=== PATIENT | female | born 1965 | race Caucasian/White ===

== ENCOUNTER 2018-02-01 07:53 | Outpatient (CLI) | payer BC | END 2018-02-01 07:54 | disposition home or self-care (01) | LOC: BICMAMMO 07:53 | PROVIDERS: ATTEND Internal Medicine | DX: Z12.31 Encounter for screening mammogram for malignant neoplasm of breast (principal); R92.1 Mammographic calcification found on diagnostic imaging of breast | CPT/HCPCS: 77063; 77067 ==

== ENCOUNTER 2019-02-16 15:05 | Outpatient (CLI) | payer OTHER ==
--- NOTE | 2019-02-16 17:22 | MMO ---
Bilateral MAMMO Bilat Screen [id number]. CLINICAL HISTORY: Patient is 53 years old and is seen for screening. The patient has no family history of breast cancer. The patient has no personal history of cancer. VIEWS: The views performed were: bilateral craniocaudal with tomosynthesis and bilateral mediolateral oblique with tomosynthesis. FILMS COMPARED: The present examination has been compared to a prior imaging study performed at [facility] on 02/01/2018. This study has been interpreted with the assistance of computer-aided detection. MAMMOGRAM FINDINGS: There are scattered fibroglandular densities. There are stable benign appearing calcifications seen in both breasts. There are no suspicious masses, calcifications or areas of architectural distortion. There are no suspicious masses, suspicious calcifications, or new areas of architectural distortion. IMPRESSION: THERE IS NO MAMMOGRAPHIC EVIDENCE OF MALIGNANCY. A ROUTINE FOLLOW-UP MAMMOGRAM IN 1 YEAR IS RECOMMENDED. THE RESULTS OF THIS EXAM WERE SENT TO THE PATIENT. ACR BI-RADS Category 2 - Benign finding MAMMOGRAPHY NOTE: 1. A negative mammogram report should not delay a biopsy if a dominant of clinically suspicious mass is present. 2. Approximately 10% to 15% of breast cancers are not detected by mammography. 3. Adenosis and dense breasts may obscure an underlying neoplasm. Reported by: JORDY GRANADOS MD Electonically Signed: [id number]
== END 2019-02-16 15:06 | disposition home or self-care (01) ==
LOC: BICMAMMO 15:05
PROVIDERS: ATTEND Internal Medicine
DX: Z12.31 Encounter for screening mammogram for malignant neoplasm of breast (principal)
CPT/HCPCS: 77063; 77067

== ENCOUNTER 2020-10-24 13:19 | Outpatient (CLI) | payer BC | END 2020-10-24 13:20 | disposition home or self-care (01) | LOC: ULT 13:19 | PROVIDERS: ATTEND Internal Medicine | DX: I65.21 Occlusion and stenosis of right carotid artery (principal); G45.8 Other transient cerebral ischemic attacks and related syndromes; R09.89 Other specified symptoms and signs involving the circulatory and respiratory systems | CPT/HCPCS: 93880 ==

== ENCOUNTER 2020-11-12 14:54 | Outpatient (CLI) | payer BC | END 2020-11-12 14:55 | disposition home or self-care (01) | LOC: BICMAMMO 14:54 | PROVIDERS: ATTEND Internal Medicine | DX: Z12.31 Encounter for screening mammogram for malignant neoplasm of breast (principal) | CPT/HCPCS: 77063; 77067 ==

== ENCOUNTER 2020-11-21 13:16 | Outpatient (CLI) | payer BC | END 2020-11-21 13:17 | disposition home or self-care (01) | LOC: MRI 13:16 | PROVIDERS: ATTEND Thoracic Surgery (Cardiothoracic Vascular Surgery) | DX: G45.8 Other transient cerebral ischemic attacks and related syndromes (principal); I70.8 Atherosclerosis of other arteries | CPT/HCPCS: 70549 ==

== ENCOUNTER 2021-04-14 16:40 | Outpatient (CLI) | payer BC ==
[2021-04-14 17:44] LABS: PTT 25.6 sec (22.0-33.0); Prothrombin Time 11.5 sec (9.5-12.1)
[2021-04-14 17:56] LABS: ALT (SGPT) 31 U/L (8-55); AST (SGOT) 67 U/L (5-34); Albumin 3.9 g/dL (3.5-5.0); Alkaline Phosphatase 111 U/L (40-110); Anion Gap 14 mmol/L (10-20); BUN (Urea Nitrogen) 14 mg/dL (9.8-20.1); Bilirubin, Direct 0.5 mg/dL (0.1-0.3); Calc. Creatinine Clearance 0 mL/min (70-130); Calcium 8.8 mg/dL (7.8-10.44); Carbon Dioxide 24 mmol/L (22-29); Chloride 104 mmol/L (98-107); Glucose 144 mg/dL (70-105); Potassium 4.1 mmol/L (3.5-5.1); Protein, Total 8.4 g/dL (6.0-8.3); Sodium 138 mmol/L (136-145)
[2021-04-14 19:50] LABS: Hemoglobin 9.5 g/dL (12.0-15.5); Mean Corpuscular HGB CONC 33.9 g/dL (32.0-36.0); Mean Corpuscular Hemoglobin 36.4 pg (27.0-33.0); Mean Corpuscular Volume 107.3 fl (81.6-98.3); Mean Platelet Volume 11.2 fl (7.4-10.4); Platelet Count 103 10x3/uL (150-450); RBC Distribution Width 14.8 % (11.5-14.5); Red Blood Cell (RBC) Count 2.61 10x6/uL (3.90-5.03); White Blood Cell (WBC) Count 2.3 10x3/uL (3.5-10.5)
[2021-04-15 17:40] LABS: SARS-CoV-2 PCR by NAA Not Detected (NotDetected)
== END 2021-04-14 16:41 | disposition home or self-care (01) ==
LOC: LABBT 16:40
PROVIDERS: ATTEND Plastic Surgery
DX: Z01.818 Encounter for other preprocedural examination (principal); C44.301 Unspecified malignant neoplasm of skin of nose; Z20.822 Contact with and (suspected) exposure to COVID-19
CPT/HCPCS: 80048; 80076; 85027; 85610; 85730; 93005; 93010; U0003; U0005

== ENCOUNTER 2021-04-17 10:24 | Day surgery (SDC) | payer BC ==
[2021-04-14 14:50] VITALS: BMI 26.9
[2021-04-17] MEDS ORDERED: Heparin 5,000 UNITS/ML VIAL ONE (11:01)
[2021-04-17] MEDS ORDERED: Midazolam HCl 2 mg/2 ml Vial ONE (11:40)
[2021-04-17] MEDS ORDERED: Fentanyl 100 MCG/2 ML VIAL ONE (11:40)
[2021-04-17] MEDS ORDERED: Ophthalmic Irrigation Solution 15 ML ONE (11:48)
[2021-04-17] MEDS ORDERED: EPINEPHrine 1 MG/ML AMP ONE (11:48)
[2021-04-17] MEDS ORDERED: Bupivacaine 0.25% HCL 30 ML VIAL ONE (11:48)
[2021-04-17] MEDS ORDERED: Bacitracin Zinc Ointment 30 gm TUBE ONE (11:48)
[2021-04-17] MEDS ORDERED: Ondansetron PF 4 MG/2 ML Vial ONE (12:13)
[2021-04-17] MEDS ORDERED: Lidocaine 1% PF 5 ML VIAL ONE (12:13)
[2021-04-17] MEDS ORDERED: PHENYLEPHRINE-NS 100 MCG/ML 10 ML SYRINGE ONE (12:13)
[2021-04-17] MEDS ORDERED: ePHEDrine 50 MG/ML VIAL ONE (12:13)
[2021-04-17] MEDS ORDERED: Dexamethasone 20 MG/5 ML VIAL ONE (12:13)
[2021-04-17] MEDS ORDERED: Rocuronium Bromide 10 MG/ML (10ML VIAL) ONE (12:13)
[2021-04-17] MEDS ORDERED: PROPOFOL 200 MG/20 ML VIAL ONE (12:13)
[2021-04-17] MEDS ORDERED: Ketorolac Tromethamine 30 MG/ML VIAL ONE (12:13)
[2021-04-17] MEDS ORDERED: [UNRECOGNIZED DRUG - OTHER] ONE (12:31)
== END 2021-04-17 16:53 | disposition home or self-care (01) ==
LOC: SDC 10:24
PROVIDERS: ATTEND Plastic Surgery
PROC: 0JX10ZB Transfer Face Subcutaneous Tissue and Fascia with Skin and Subcutaneous Tissue, Open Approach (ICD-10-PCS; principal; 2021-04-17)
PROC: 0HB1XZZ Excision of Face Skin, External Approach (ICD-10-PCS; principal; 2021-04-17)
DX: C44.311 Basal cell carcinoma of skin of nose (principal); Z79.899 Other long term (current) drug therapy; Z91.041 Radiographic dye allergy status
CPT/HCPCS: 88305; 88331; 88332; J0171; J1100; J1644; J1885; J2250; J2405; J2704; J3010; J3490; S0020

== ENCOUNTER 2021-11-24 08:29 | Outpatient (CLI) | payer BC | END 2021-11-24 08:30 | disposition home or self-care (01) | LOC: BICMAMMO 08:29 | PROVIDERS: ATTEND Internal Medicine | DX: Z12.31 Encounter for screening mammogram for malignant neoplasm of breast (principal) | CPT/HCPCS: 77063; 77067 ==

== ENCOUNTER 2022-07-25 05:24 | Inpatient (IN) | payer BC ==
[2022-07-25] MEDS ORDERED: Ondansetron PF 4 MG/2 ML Vial ONE (06:16)
[2022-07-25 06:53] LABS: ALT (SGPT) 8 U/L (8-55); AST (SGOT) 33 U/L (5-34); Albumin 2.9 g/dL (3.5-5.0); Alkaline Phosphatase 92 U/L (40-110); Anion Gap 11 mmol/L (10-20); BUN (Urea Nitrogen) 11 mg/dL (9.8-20.1); Calc. Creatinine Clearance 0 mL/min (70-130); Calcium 8.2 mg/dL (7.8-10.44); Carbon Dioxide 22 mmol/L (22-29); Chloride 103 mmol/L (98-107); Estimated GFR 75; Globulin 4.5 g/dL (2.4-3.5); Glucose 165 mg/dL (70-105); Lipase 28 U/L (8-78); Potassium 3.5 mmol/L (3.5-5.1); Protein, Total 7.4 g/dL (6.0-8.3); Sodium 132 mmol/L (136-145)
[2022-07-25 06:54] LABS: Hemoglobin 8.2 g/dL (12.0-16.0); Mean Corpuscular Hemoglobin 38.9 pg (27.0-31.0); RBC Distribution Width 13.8 % (11.5-14.5); White Blood Cell (WBC) Count 3.3 10x3/uL (4.8-10.8)
[2022-07-25 07:11] LABS: #Lymphocytes 0.3 thou/uL (1.20-3.40); #Monocytes 0.2 thou/uL (0.11-0.59); #Neutrophils 2.8 thou/uL (1.40-6.50); %Eosinophils 1.3 % (0.0-10.0); %Lymphocytes 8.9 % (21.0-51.0); %Neutrophils 82.9 % (42.0-75.0)
[2022-07-25 07:14] LABS: Bilirubin Negative (Negative); Blood, Urine Negative (Negative); Clarity Clear (Clear); Glucose, Urine (Dipstick) Normal (Negative); Ketone, Urine Trace mg/dL (Negative); Leukocyte Negative Leu/uL (Negative); Nitrite Negative (Negative); Protein, Urine (Dipstick) 10 mg/dL (Neg-Trace); Urobilinogen 3 mg/dL (Less than 2); pH, Urine 5.5 (5.0-9.0)
[2022-07-25 07:21] LABS: MDiff Complete? YES; Macrocytosis MODERATE=16-30 cells (100X) (0-5/hpf); Mean Platelet Volume 9.9 fL (7.4-10.4); Ovalocytes MODERATE= 6-15 cells (100X) (0-1/hpf); Platelet Count 94 10x3/uL (130-400); Platelet Morphology Comment Appears Decreased; Polychromasia SLIGHT = 2-3 cells (100X) (0-2/hpf); Schistocytes SLIGHT = 2-5 cells (100X) (0-1/hpf); Tear Drops SLIGHT = 2-5 cells (100X) (0-1/hpf)
[2022-07-25] MEDS ORDERED: Vancomycin 1 GM/200 ML (FROZEN) BAG ONE (08:32)
[2022-07-25] MEDS ORDERED: Cefepime 2 GM VIAL ONE (08:32)
[2022-07-25 09:18] LABS: INR-International Normal Ratio 1.3; PTT 32.5 sec (22.9-36.1); Prothrombin Time 16.3 sec (12.0-14.7)
[2022-07-25] MEDS ORDERED: NOREPINEPHRINE 8 MG/250 ML-D5W 250 ML ONE (10:11)
[2022-07-25] MEDS ORDERED: Ondansetron PF 4 MG/2 ML Vial IVP PRN (11:11)
[2022-07-25] MEDS ORDERED: NOREPINEPHRINE 8 MG/250 ML-D5W 250 ML IVPB SCH (11:15)
[2022-07-25] MEDS ORDERED: Dexamethasone 10 MG/ML VIAL ONE (11:15)
[2022-07-25] MEDS: Albumin 25% 25 GM/100 ML BOT IVPB SCH ×3 (12:56→23:54)
[2022-07-25] MEDS: metroNIDAZOLE 500 MG in Premix Bag 1 BAG IVPB SCH ×2 (13:50→23:27)
[2022-07-25 13:51] LABS: SARS-CoV-2 NAA Rapid Test Not Detected (NotDetected)
[2022-07-25 15:07] VITALS: BMI 26.8
[2022-07-25] MEDS: Sodium Chloride 0.9% 1,000 ML IV SCH (15:54)
[2022-07-25] MEDS: methylPREDNISolone Sod Succ 40 MG VIAL IVP SCH (17:40)
[2022-07-25] MEDS ORDERED: methylPREDNISolone Sod Succ 40 MG VIAL IVP SCH (18:00)
[2022-07-25 18:21] LABS: RBC Count-Automated (BF) 2221 /cu.mm; WBC/Nucleated-Auto (BF) 100 /cu.mm
[2022-07-25] MEDS ORDERED: Dextrose 50% Abboject 50 ML SYRINGE SLOW IVP PRN (18:47)
[2022-07-25] MEDS ORDERED: Dextrose 5% in Water 1,000 ML IV PRN (18:47)
[2022-07-25 19:05] LABS: BF Color Yellow; Body Fluid Source Ascites Body Fluid; Clarity Hazy (Clear); Tube # EDTA
[2022-07-25 19:06] LABS: BF Segmented Neutrophils 5 %; Cell Count Non Hematic 66 %; Lymphocytes 29 %
[2022-07-25] MEDS: HumaLOG 300 UNITS/3 ML VIAL SC PRN ×3 (19:32→23:37)
[2022-07-25] MEDS ORDERED: Cefepime 2 GM in Sodium Chloride 0.9% 100 ML IVPB SCH (21:00)
[2022-07-25] MEDS: Vancomycin 1 GM in Premix Bag 1 BAG IVPB SCH (22:04)
[2022-07-25 22:30] LABS: Legionella Urinary Ag Negative (Negative); Strep pneumo Urine Ag NEGATIVE (NEGATIVE)
[2022-07-26] MEDS: methylPREDNISolone Sod Succ 40 MG VIAL IVP SCH ×3 (00:09→11:35)
[2022-07-26 04:20] LABS: Hemoglobin A1c 4.9 % (4.0-6.0)
[2022-07-26 04:26] LABS: INR-International Normal Ratio 1.6; PTT 33.9 sec (22.9-36.1); Prothrombin Time 19.5 sec (12.0-14.7)
[2022-07-26 04:42] LABS: Troponin I 0.016 ng/mL (< 0.028)
[2022-07-26 04:43] LABS: ALT (SGPT) 8 U/L (8-55); AST (SGOT) 15 U/L (5-34); Albumin 3.4 g/dL (3.5-5.0); Alkaline Phosphatase 67 U/L (40-110); Anion Gap 14 mmol/L (10-20); BUN (Urea Nitrogen) 23 mg/dL (9.8-20.1); Bilirubin, Total 1.6 mg/dL (0.2-1.2); CRP (Inflammatory) 4.86 mg/dL (= or < 0.5); Calc. Creatinine Clearance 44 mL/min (70-130); Calcium 8.5 mg/dL (7.8-10.44); Carbon Dioxide 20 mmol/L (22-29); Chloride 103 mmol/L (98-107); Estimated GFR 37; Globulin 3.7 g/dL (2.4-3.5); Glucose 255 mg/dL (70-105); Magnesium 1.7 mg/dL (1.6-2.6); Potassium 3.8 mmol/L (3.5-5.1); Protein, Total 7.1 g/dL (6.0-8.3); Sodium 133 mmol/L (136-145)
[2022-07-26] MEDS: Sodium Chloride 0.9% 1,000 ML IV SCH ×2 (04:50→12:02)
[2022-07-26 05:09] LABS: Mean Corpuscular Hemoglobin 40.8 pg (27.0-31.0); Mean Platelet Volume 9.9 fL (7.4-10.4); Platelet Count 61 10x3/uL (130-400); RBC Distribution Width 14.3 % (11.5-14.5); Red Blood Cell (RBC) Count 1.71 mill/uL (4.20-5.40); White Blood Cell (WBC) Count 1.8 10x3/uL (4.8-10.8)
[2022-07-26] MEDS: Albumin 25% 25 GM/100 ML BOT IVPB SCH ×2 (05:55→18:36)
[2022-07-26] MEDS: metroNIDAZOLE 500 MG in Premix Bag 1 BAG IVPB SCH ×3 (05:56→20:41)
[2022-07-26] MEDS: HumaLOG 300 UNITS/3 ML VIAL SC PRN ×3 (06:08→20:40)
[2022-07-26 06:15] LABS: #Lymphocytes 0.2 thou/uL (1.20-3.40); #Monocytes 0.1 thou/uL (0.11-0.59); #Neutrophils 1.5 thou/uL (1.40-6.50); %Eosinophils 1.3 % (0.0-10.0); %Lymphocytes 10.4 % (21.0-51.0); %Monocytes 4.9 % (0.0-10.0); %Neutrophils 83.4 % (42.0-75.0); Band 3 % (5-11); Lymphocytes 9 % (21-51); MDiff Complete? YES; Macrocytosis SLIGHT = 6-15 cells (100X) (0-5/hpf); Monocytes 5 % (0-10); Neutrophil 83 % (42-75); Ovalocytes SLIGHT = 2-5 cells (100X) (0-1/hpf); Platelet Morphology Comment Appears Decreased; Poikilocytosis SLIGHT = 6-15 cells (100X) (0-5/hpf); Schistocytes SLIGHT = 2-5 cells (100X) (0-1/hpf); Tear Drops SLIGHT = 2-5 cells (100X) (0-1/hpf)
[2022-07-26] MEDS: Cefepime 1 GM in Sodium Chloride 0.9% 100 ML IVPB SCH ×2 (08:29→20:40)
[2022-07-26] MEDS: Vancomycin 1 GM in Premix Bag 1 BAG IVPB SCH ×2 (09:10→22:42)
[2022-07-26 19:37] LABS: Glucose 271 mg/dL (70-105)
[2022-07-26 21:39] LABS: Vancomycin, Trough 25.8 ug/mL
[2022-07-27] MEDS: Albumin 25% 25 GM/100 ML BOT IVPB SCH ×5 (00:17→17:33)
[2022-07-27] MEDS: metroNIDAZOLE 500 MG in Premix Bag 1 BAG IVPB SCH (06:27)
[2022-07-27 07:17] LABS: INR-International Normal Ratio 1.7; PTT 32.5 sec (22.9-36.1); Prothrombin Time 20.6 sec (12.0-14.7)
[2022-07-27 07:20] LABS: Phosphorus 3.7 mg/dL (2.3-4.7)
[2022-07-27 07:24] LABS: ALT (SGPT) Less than 7 U/L (8-55); AST (SGOT) 9 U/L (5-34); Albumin 3.3 g/dL (3.5-5.0); Alkaline Phosphatase 82 U/L (40-110); Anion Gap 10 mmol/L (10-20); BUN (Urea Nitrogen) 34 mg/dL (9.8-20.1); Calc. Creatinine Clearance 51 mL/min (70-130); Calcium 8.3 mg/dL (7.8-10.44); Carbon Dioxide 21 mmol/L (22-29); Chloride 106 mmol/L (98-107); Estimated GFR 44; Glucose 156 mg/dL (70-105); Magnesium 1.8 mg/dL (1.6-2.6); Protein, Total 6.3 g/dL (6.0-8.3); Sodium 133 mmol/L (136-145)
[2022-07-27 08:52] LABS: #Lymphocytes 0.3 thou/uL (1.20-3.40); #Monocytes 0.1 thou/uL (0.11-0.59); #Neutrophils 1.4 thou/uL (1.40-6.50); %Eosinophils 0.3 % (0.0-10.0); %Lymphocytes 17.8 % (21.0-51.0); %Monocytes 2.6 % (0.0-10.0); %Neutrophils 79.3 % (42.0-75.0); Hemoglobin 6.2 g/dL (12.0-16.0); Mean Corpuscular HGB CONC 34.7 g/dL (32.0-36.0); Mean Corpuscular Hemoglobin 40.7 pg (27.0-31.0); Mean Platelet Volume 10.1 fL (7.4-10.4); Platelet Count 63 10x3/uL (130-400); RBC Distribution Width 13.9 % (11.5-14.5); Red Blood Cell (RBC) Count 1.53 mill/uL (4.20-5.40); White Blood Cell (WBC) Count 1.7 10x3/uL (4.8-10.8)
[2022-07-27 09:14] LABS: Hypochromia SLIGHT = 6-15 cells (100X) (0-5/hpf); MDiff Complete? YES; Macrocytosis SLIGHT = 6-15 cells (100X) (0-5/hpf); Ovalocytes MODERATE= 6-15 cells (100X) (0-1/hpf); Platelet Morphology Comment Appears Decreased; Polychromasia SLIGHT = 2-3 cells (100X) (0-2/hpf); Schistocytes SLIGHT = 2-5 cells (100X) (0-1/hpf)
[2022-07-27] MEDS: Cefepime 1 GM in Sodium Chloride 0.9% 100 ML IVPB SCH ×2 (09:36→20:31)
[2022-07-27] MEDS: Fludrocortisone Acetate 0.1 MG TAB PO SCH (09:36)
[2022-07-27 09:55] LABS: Vancomycin, Random 18.8 ug/mL (See Comment)
[2022-07-27] MEDS ORDERED: Vancomycin 1 GM in Premix Bag 1 BAG IVPB SCH (10:00)
[2022-07-27] MEDS ORDERED: Vancomycin HCl 750 MG in Sodium Chloride 0.9% 250 ML 250 ML IVPB SCH (11:00)
[2022-07-27 16:54] LABS: Campy jejuni + coli by PCR Negative (Negative); STEC Shiga Toxin 1+2 Negative (Negative); Salmonella spp. by PCR Negative (Negative); Shigella spp + EIEC by PCR Negative (Negative)
[2022-07-27 18:25] LABS: Glucose 182 mg/dL (70-105)
[2022-07-28 06:56] LABS: ALT (SGPT) Less than 7 U/L (8-55); AST (SGOT) 13 U/L (5-34); Albumin 3.2 g/dL (3.5-5.0); Alkaline Phosphatase 72 U/L (40-110); Anion Gap 10 mmol/L (10-20); BUN (Urea Nitrogen) 33 mg/dL (9.8-20.1); Bilirubin, Total 0.9 mg/dL (0.2-1.2); Calc. Creatinine Clearance 59 mL/min (70-130); Calcium 7.9 mg/dL (7.8-10.44); Carbon Dioxide 20 mmol/L (22-29); Chloride 108 mmol/L (98-107); Estimated GFR 53; Globulin 2.8 g/dL (2.4-3.5); Glucose 122 mg/dL (70-105); Magnesium 1.7 mg/dL (1.6-2.6); Potassium 3.4 mmol/L (3.5-5.1); Sodium 135 mmol/L (136-145)
[2022-07-28 07:23] LABS: #Lymphocytes 0.5 thou/uL (1.20-3.40); #Monocytes 0.1 thou/uL (0.11-0.59); #Neutrophils 0.8 thou/uL (1.40-6.50); %Eosinophils 0.9 % (0.0-10.0); %Lymphocytes 36.9 % (21.0-51.0); %Monocytes 4.2 % (0.0-10.0); Hemoglobin 6.4 g/dL (12.0-16.0); Mean Corpuscular HGB CONC 35.9 g/dL (32.0-36.0); Mean Corpuscular Hemoglobin 42.1 pg (27.0-31.0); Mean Platelet Volume 9.1 fL (7.4-10.4); Platelet Count 66 10x3/uL (130-400); RBC Distribution Width 14.2 % (11.5-14.5); Red Blood Cell (RBC) Count 1.51 mill/uL (4.20-5.40); White Blood Cell (WBC) Count 1.5 10x3/uL (4.8-10.8)
[2022-07-28 07:24] LABS: INR-International Normal Ratio 1.8; PTT 32.9 sec (22.9-36.1); Prothrombin Time 21.6 sec (12.0-14.7)
[2022-07-28] MEDS: Cefepime 1 GM in Sodium Chloride 0.9% 100 ML IVPB SCH ×2 (08:16→21:45)
[2022-07-28] MEDS: Fludrocortisone Acetate 0.1 MG TAB PO SCH (08:16)
[2022-07-28 08:53] LABS: Glucose 116 mg/dL (70-105)
[2022-07-28] MEDS ORDERED: Potassium Chloride 20 MEQ TAB PO SCH (13:00)
[2022-07-28 14:16] LABS: CMV DNA-PCR Test Negative (Negative)
[2022-07-28] MEDS: Albumin 25% 25 GM/100 ML BOT IVPB SCH (16:40)
[2022-07-28] MEDS ORDERED: Iron, Sodium Ferric Gluconate 250 MG in Sodium Chloride 0.9% 250 ML 250 ML IVPB SCH (17:00)
[2022-07-28 18:03] LABS: Iron 32 ug/dL (50-170); Iron Binding Capacity, Total 160 mcg/dL (265-497)
[2022-07-28 19:05] LABS: Reticulocyte Count 1.5 % (0.5-1.5)
[2022-07-29] MEDS: Albumin 25% 25 GM/100 ML BOT IVPB SCH ×3 (00:28→14:45)
[2022-07-29 06:13] LABS: HSV 1 - DNA Negative (Negative); HSV 2 - DNA Negative (Negative)
[2022-07-29 06:55] LABS: INR-International Normal Ratio 1.9; PTT 34.3 sec (22.9-36.1); Prothrombin Time 22.3 sec (12.0-14.7)
[2022-07-29 07:15] LABS: ALT (SGPT) Less than 7 U/L (8-55); AST (SGOT) 15 U/L (5-34); Albumin 3.6 g/dL (3.5-5.0); Alkaline Phosphatase 58 U/L (40-110); Anion Gap 10 mmol/L (10-20); BUN (Urea Nitrogen) 25 mg/dL (9.8-20.1); Calc. Creatinine Clearance 69 mL/min (70-130); Calcium 8.2 mg/dL (7.8-10.44); Carbon Dioxide 21 mmol/L (22-29); Chloride 110 mmol/L (98-107); Estimated GFR 60; Globulin 2.8 g/dL (2.4-3.5); Glucose 111 mg/dL (70-105); Magnesium 1.6 mg/dL (1.6-2.6); Protein, Total 6.4 g/dL (6.0-8.3); Sodium 137 mmol/L (136-145)
[2022-07-29] MEDS ORDERED: Lidocaine 1% PF 5 ML VIAL ONE (09:47)
[2022-07-29] MEDS ORDERED: Sodium Bicarbonate 2.5 MEQ/5 ML VIAL ONE (10:08)
[2022-07-29 11:40] LABS: Mean Corpuscular HGB CONC 33.6 g/dL (32.0-36.0); Mean Corpuscular Hemoglobin 39.2 pg (27.0-31.0); Mean Platelet Volume 9.1 fL (7.4-10.4); Platelet Count 66 10x3/uL (130-400); RBC Distribution Width 14.2 % (11.5-14.5); Red Blood Cell (RBC) Count 1.53 mill/uL (4.20-5.40); White Blood Cell (WBC) Count 0.9 10x3/uL (4.8-10.8)
[2022-07-29 11:55] LABS: Lymphocytes 48 % (21-51); MDiff Complete? YES; Macrocytosis SLIGHT = 6-15 cells (100X) (0-5/hpf); Neutrophil 48 % (42-75); Ovalocytes SLIGHT = 2-5 cells (100X) (0-1/hpf); Platelet Morphology Comment Appears Decreased; Polychromasia SLIGHT = 2-3 cells (100X) (0-2/hpf); Reactive Lymphocytes 4 % (0-10); Tear Drops SLIGHT = 2-5 cells (100X) (0-1/hpf)
[2022-07-29] MEDS: Fludrocortisone Acetate 0.1 MG TAB PO SCH (12:44)
[2022-07-29] MEDS: Cefepime 1 GM in Sodium Chloride 0.9% 100 ML IVPB SCH ×2 (12:44→21:39)
[2022-07-29] MEDS ORDERED: Phytonadione 10 MG/ML AMP PO SCH (17:45)
[2022-07-30 07:40] LABS: ALT (SGPT) Less than 7 U/L (8-55); AST (SGOT) 16 U/L (5-34); Albumin 3.5 g/dL (3.5-5.0); Alkaline Phosphatase 58 U/L (40-110); Anion Gap 10 mmol/L (10-20); BUN (Urea Nitrogen) 20 mg/dL (9.8-20.1); Bilirubin, Total 1.1 mg/dL (0.2-1.2); Calc. Creatinine Clearance 74 mL/min (70-130); Calcium 8.4 mg/dL (7.8-10.44); Carbon Dioxide 21 mmol/L (22-29); Chloride 110 mmol/L (98-107); Estimated GFR 65; Globulin 2.6 g/dL (2.4-3.5); Glucose 136 mg/dL (70-105); Magnesium 1.8 mg/dL (1.6-2.6); Potassium 4.5 mmol/L (3.5-5.1); Protein, Total 6.1 g/dL (6.0-8.3); Sodium 136 mmol/L (136-145)
[2022-07-30 07:43] LABS: INR-International Normal Ratio 1.7; PTT 34.9 sec (22.9-36.1); Prothrombin Time 20.7 sec (12.0-14.7)
[2022-07-30 08:11] LABS: #Eosinphils 0.1 thou/uL (0.0-0.7); #Lymphocytes 0.6 thou/uL (1.20-3.40); #Monocytes 0.1 thou/uL (0.11-0.59); #Neutrophils 0.7 thou/uL (1.40-6.50); %Eosinophils 3.7 % (0.0-10.0); %Lymphocytes 39.3 % (21.0-51.0); %Monocytes 5.9 % (0.0-10.0); %Neutrophils 51.1 % (42.0-75.0); Hemoglobin 7.4 g/dL (12.0-16.0); Mean Corpuscular HGB CONC 34.2 g/dL (32.0-36.0); Mean Corpuscular Hemoglobin 40.5 pg (27.0-31.0); Mean Platelet Volume 9.5 fL (7.4-10.4); Platelet Count 73 10x3/uL (130-400); RBC Distribution Width 14.5 % (11.5-14.5); Red Blood Cell (RBC) Count 1.82 mill/uL (4.20-5.40); White Blood Cell (WBC) Count 1.4 10x3/uL (4.8-10.8)
[2022-07-30] MEDS: Fludrocortisone Acetate 0.1 MG TAB PO SCH (09:10)
[2022-07-30] MEDS: Cefepime 1 GM in Sodium Chloride 0.9% 100 ML IVPB SCH ×2 (09:10→20:43)
[2022-07-31] MEDS ORDERED: Ketorolac Tromethamine 30 MG/ML VIAL IVP SCH (00:30)
[2022-07-31 07:59] LABS: INR-International Normal Ratio 1.5; PTT 33.3 sec (22.9-36.1); Prothrombin Time 18.5 sec (12.0-14.7)
[2022-07-31 08:12] LABS: ALT (SGPT) 8 U/L (8-55); AST (SGOT) 21 U/L (5-34); Albumin 3.7 g/dL (3.5-5.0); Alkaline Phosphatase 79 U/L (40-110); Anion Gap 14 mmol/L (10-20); BUN (Urea Nitrogen) 18 mg/dL (9.8-20.1); Bilirubin, Total 1.9 mg/dL (0.2-1.2); Calc. Creatinine Clearance 75 mL/min (70-130); Calcium 8.8 mg/dL (7.8-10.44); Carbon Dioxide 16 mmol/L (22-29); Chloride 109 mmol/L (98-107); Estimated GFR 66; Globulin 3.3 g/dL (2.4-3.5); Glucose 219 mg/dL (70-105); Magnesium 1.8 mg/dL (1.6-2.6); Potassium 4.8 mmol/L (3.5-5.1); Sodium 134 mmol/L (136-145)
[2022-07-31 08:47] LABS: #Eosinphils 0.1 thou/uL (0.0-0.7); #Lymphocytes 0.5 thou/uL (1.20-3.40); #Monocytes 0.3 thou/uL (0.11-0.59); #Neutrophils 2.6 thou/uL (1.40-6.50); %Basophils 0.4 % (0.0-1.0); %Eosinophils 1.9 % (0.0-10.0); %Lymphocytes 13.4 % (21.0-51.0); %Monocytes 7.4 % (0.0-10.0); %Neutrophils 76.9 % (42.0-75.0); Hemoglobin 9.4 g/dL (12.0-16.0); Mean Corpuscular HGB CONC 33.6 g/dL (32.0-36.0); Mean Corpuscular Hemoglobin 40.5 pg (27.0-31.0); Mean Platelet Volume 10.2 fL (7.4-10.4); Platelet Count 76 10x3/uL (130-400); RBC Distribution Width 15.5 % (11.5-14.5); Red Blood Cell (RBC) Count 2.31 mill/uL (4.20-5.40); White Blood Cell (WBC) Count 3.3 10x3/uL (4.8-10.8)
[2022-07-31] MEDS: Fludrocortisone Acetate 0.1 MG TAB PO SCH (09:04)
[2022-07-31] MEDS: Cefepime 1 GM in Sodium Chloride 0.9% 100 ML IVPB SCH (09:04)
[2022-07-31] MEDS ORDERED: Acetaminophen 325 MG TAB PO PRN (10:00)
[2022-07-31 13:12] LABS: Norovirus GI Negative (Negative); Norovirus GII Negative (Negative)
[2022-08-01 08:18] LABS: Actual Bicarbonate (HCO3v) 20.6 mEq/L (22-28); Base Excess -4.2 mEq/L (-2.0 to +3.0); Calcium, Ionized (venous) 1.13 mmol/L (1.16-1.32); Chloride (VBG) 105 mmol/L (98-106); Hematocrit-VBG 23 % (36.0-47.0); Hemoglobin (Hb) 7.9 g/dL (11.7-16.0); Potassium (VBG) 4.43 mmol/L (3.70-5.30); Sodium 133.3 mmol/L (133-146); pH (venous) 7.375 (7.32-7.43)
[2022-08-01] MEDS: Fludrocortisone Acetate 0.1 MG TAB PO SCH (08:29)
[2022-08-01 08:48] LABS: PTT 34.5 sec (22.9-36.1)
[2022-08-01 08:49] LABS: INR-International Normal Ratio 1.5; Prothrombin Time 18.5 sec (12.0-14.7)
[2022-08-01 09:00] LABS: Hemoglobin 7.4 g/dL (12.0-16.0); Mean Corpuscular HGB CONC 33.4 g/dL (32.0-36.0); Mean Corpuscular Hemoglobin 40.1 pg (27.0-31.0); RBC Distribution Width 15.1 % (11.5-14.5); Red Blood Cell (RBC) Count 1.83 mill/uL (4.20-5.40)
[2022-08-01 09:31] LABS: ALT (SGPT) 10 U/L (8-55); AST (SGOT) 18 U/L (5-34); Albumin 3.8 g/dL (3.5-5.0); Alkaline Phosphatase 68 U/L (40-110); Anion Gap 12 mmol/L (10-20); BUN (Urea Nitrogen) 22 mg/dL (9.8-20.1); Bilirubin, Total 2.2 mg/dL (0.2-1.2); Calc. Creatinine Clearance 72 mL/min (70-130); Calcium 8.7 mg/dL (7.8-10.44); Carbon Dioxide 19 mmol/L (22-29); Chloride 107 mmol/L (98-107); Estimated GFR 62; Globulin 3.3 g/dL (2.4-3.5); Glucose 139 mg/dL (70-105); Magnesium 1.8 mg/dL (1.6-2.6); Potassium 4.4 mmol/L (3.5-5.1); Protein, Total 7.1 g/dL (6.0-8.3); Sodium 134 mmol/L (136-145)
[2022-08-01 10:13] LABS: #Eosinphils 0.1 thou/uL (0.0-0.7); #Lymphocytes 0.5 thou/uL (1.20-3.40); #Monocytes 0.3 thou/uL (0.11-0.59); #Neutrophils 2.1 thou/uL (1.40-6.50); %Basophils 0.7 % (0.0-1.0); %Eosinophils 2.2 % (0.0-10.0); %Monocytes 9.4 % (0.0-10.0); %Neutrophils 69.7 % (42.0-75.0); Anisocytosis SLIGHT = 6-15 cells (100X) (0-5/hpf); MDiff Complete? YES; Mean Platelet Volume 10.2 fL (7.4-10.4); Ovalocytes SLIGHT = 2-5 cells (100X) (0-1/hpf); Platelet Count 58 10x3/uL (130-400); Platelet Morphology Comment Appears Decreased; Polychromasia SLIGHT = 2-3 cells (100X) (0-2/hpf)
[2022-08-01] MEDS ORDERED: azaTHIOprine 50 MG TAB PO SCH (12:30)
[2022-08-01 13:27] LABS: Bilirubin, Direct 0.6 mg/dL (0.1-0.3)
[2022-08-02 00:36] VITALS: TEMP 98.4
[2022-08-02 07:12] LABS: INR-International Normal Ratio 1.4; PTT 34.2 sec (22.9-36.1); Prothrombin Time 17.4 sec (12.0-14.7)
[2022-08-02 07:19] LABS: ALT (SGPT) Less than 7 U/L (8-55); AST (SGOT) 19 U/L (5-34); Albumin 3.7 g/dL (3.5-5.0); Alkaline Phosphatase 76 U/L (40-110); Anion Gap 13 mmol/L (10-20); BUN (Urea Nitrogen) 23 mg/dL (9.8-20.1); Bilirubin, Total 1.5 mg/dL (0.2-1.2); Calc. Creatinine Clearance 72 mL/min (70-130); Calcium 8.6 mg/dL (7.8-10.44); Carbon Dioxide 18 mmol/L (22-29); Chloride 108 mmol/L (98-107); Estimated GFR 63; Globulin 3.6 g/dL (2.4-3.5); Glucose 147 mg/dL (70-105); Potassium 4.5 mmol/L (3.5-5.1); Protein, Total 7.3 g/dL (6.0-8.3); Sodium 134 mmol/L (136-145)
[2022-08-02] MEDS ORDERED: Spironolactone 25 MG TAB PO SCH (08:00)
[2022-08-02] MEDS: Fludrocortisone Acetate 0.1 MG TAB PO SCH (08:54)
[2022-08-02 08:56] VITALS: BP 110/64
[2022-08-02] MEDS ORDERED: Furosemide 20 MG TAB PO SCH (09:00)
[2022-08-02] MEDS ORDERED: azaTHIOprine 50 MG TAB PO SCH (09:00)
[2022-08-02 09:58] LABS: #Eosinphils 0.1 thou/uL (0.0-0.7); #Lymphocytes 0.6 thou/uL (1.20-3.40); #Monocytes 0.3 thou/uL (0.11-0.59); #Neutrophils 1.9 thou/uL (1.40-6.50); %Basophils 0.9 % (0.0-1.0); %Eosinophils 2.9 % (0.0-10.0); %Lymphocytes 19.8 % (21.0-51.0); %Monocytes 9.7 % (0.0-10.0); %Neutrophils 66.8 % (42.0-75.0); Hemoglobin 7.9 g/dL (12.0-16.0); Mean Corpuscular HGB CONC 33.9 g/dL (32.0-36.0); Mean Corpuscular Hemoglobin 40.9 pg (27.0-31.0); Mean Platelet Volume 11.6 fL (7.4-10.4); Platelet Count 45 10x3/uL (130-400); RBC Distribution Width 15.1 % (11.5-14.5); Red Blood Cell (RBC) Count 1.93 mill/uL (4.20-5.40); White Blood Cell (WBC) Count 2.9 10x3/uL (4.8-10.8)
[2022-08-02 10:13] LABS: Burr Cells MODERATE= 6-15 cells (100X) (0-1/hpf); MDiff Complete? YES; Macrocytosis MODERATE=16-30 cells (100X) (0-5/hpf); Platelet Morphology Comment Appears Decreased; Polychromasia SLIGHT = 2-3 cells (100X) (0-2/hpf)
[2022-08-04 00:37] LABS: Routine O & P Final report (.)
== END 2022-08-02 12:02 | disposition home or self-care (01) | DRG 433 ==
LOC: ERS 05:24 → CCU 11:00 → T4-A 07-26 20:30
PROVIDERS: ADMIT Hospitalist; ATTEND Hospitalist
PROC: 0W9G3ZZ Drainage of Peritoneal Cavity, Percutaneous Approach (ICD-10-PCS; principal; 2022-07-25)
PROC: 02H633Z Insertion of Infusion Device into Right Atrium, Percutaneous Approach (ICD-10-PCS; 2022-07-25)
PROC: B548ZZA Ultrasonography of Superior Vena Cava, Guidance (ICD-10-PCS; 2022-07-25)
PROC: 3E033XZ Introduction of Vasopressor into Peripheral Vein, Percutaneous Approach (ICD-10-PCS; 2022-07-25)
PROC: 0W9G3ZZ Drainage of Peritoneal Cavity, Percutaneous Approach (ICD-10-PCS; 2022-07-29)
DX: K74.69 Other cirrhosis of liver (principal); D59.12 Cold autoimmune hemolytic anemia; K76.6 Portal hypertension; R18.8 Other ascites; E27.40 Unspecified adrenocortical insufficiency; D61.818 Other pancytopenia; N17.9 Acute kidney failure, unspecified; E87.1 Hypo-osmolality and hyponatremia; E87.20 Acidosis, unspecified; K75.4 Autoimmune hepatitis; Z20.822 Contact with and (suspected) exposure to COVID-19; K80.20 Calculus of gallbladder without cholecystitis without obstruction; E03.9 Hypothyroidism, unspecified; E86.0 Dehydration; F17.210 Nicotine dependence, cigarettes, uncomplicated; N18.30 Chronic kidney disease, stage 3 unspecified; E87.6 Hypokalemia; E88.09 Other disorders of plasma-protein metabolism, not elsewhere classified; D73.1 Hypersplenism; Z91.041 Radiographic dye allergy status; Z85.22 Personal history of malignant neoplasm of nasal cavities, middle ear, and accessory sinuses; Z98.890 Other specified postprocedural states; Z79.899 Other long term (current) drug therapy; Z86.16 Personal history of COVID-19
CPT/HCPCS: 36415; 36416; 36556; 49083; 70450; 71045; 71046; 71250; 74019; 74176; 74177; 80053; 80202; 81003; 82042; 82140; 82150; 82248; 82533; 82550; 82728; 82805; 82945; 83036; 83540; 83550; 83605; 83615; 83630; 83690; 83735; 83880; 83986; 84100; 84443; 84478; 84484; 85025; 85046; 85060; 85610; 85652; 85730; 86140; 86850; 86860; 86870; 86880; 86900; 86901; 86905; 86921; 86978; 87040; 87070; 87081; 87086; 87177; 87205; 87324; 87449; 87497; 87505; 87529; 87798; 87899; 88112; 88305; 89051; 93005; 93306; 96361; 96365; 96366; 96367; 96375; 99292; J0692; J1100; J1815; J1885; J2405; J2916; J2920; J3370; J3370-JW; J3430; J3490; J7050; J7500; P9047; U0002

== ENCOUNTER 2022-08-04 10:22 | Outpatient (CLI) | payer BC | END 2022-08-04 10:23 | disposition home or self-care (01) | LOC: BICRAD 10:22 | PROVIDERS: ATTEND Internal Medicine | DX: R09.89 Other specified symptoms and signs involving the circulatory and respiratory systems (principal); J90 Pleural effusion, not elsewhere classified; J98.11 Atelectasis | CPT/HCPCS: 71046 ==

== ENCOUNTER 2022-08-11 11:27 | Inpatient (IN) | payer BC ==
[2022-08-11 12:51] LABS: ALT (SGPT) 7 U/L (8-55); AST (SGOT) 20 U/L (5-34); Albumin 3.2 g/dL (3.5-5.0); Alkaline Phosphatase 69 U/L (40-110); Anion Gap 12 mmol/L (10-20); BUN (Urea Nitrogen) 15 mg/dL (9.8-20.1); Bilirubin, Total 1.6 mg/dL (0.2-1.2); Calc. Creatinine Clearance 0 mL/min (70-130); Calcium 8.6 mg/dL (7.8-10.44); Carbon Dioxide 24 mmol/L (22-29); Chloride 102 mmol/L (98-107); Estimated GFR 66; Globulin 3.9 g/dL (2.4-3.5); Glucose 193 mg/dL (70-105); Potassium 4.1 mmol/L (3.5-5.1); Protein, Total 7.1 g/dL (6.0-8.3); Sodium 134 mmol/L (136-145)
[2022-08-11 13:47] LABS: #Monocytes 0.2 thou/uL (0.11-0.59); %Basophils 0.6 % (0.0-1.0); %Eosinophils 2.5 % (0.0-10.0); %Lymphocytes 22.9 % (21.0-51.0); %Monocytes 12.1 % (0.0-10.0); %Neutrophils 61.3 % (42.0-75.0); Hemoglobin 5.6 g/dL (12.0-16.0); Mean Corpuscular HGB CONC 33.7 g/dL (32.0-36.0); Mean Corpuscular Hemoglobin 39.7 pg (27.0-31.0); Mean Corpuscular Volume 117.7 fl (78.0-98.0); Mean Platelet Volume 12.3 fL (7.4-10.4); Red Blood Cell (RBC) Count 1.41 mill/uL (4.20-5.40); White Blood Cell (WBC) Count 1.6 10x3/uL (4.8-10.8)
[2022-08-11 13:52] LABS: Platelet Count 98 10x3/uL (130-400)
[2022-08-11] MEDS ORDERED: Ondansetron ODT 4 MG TAB PO PRN (14:34)
[2022-08-11] MEDS ORDERED: Acetaminophen 325 MG TAB PO PRN (14:34)
[2022-08-11] MEDS ORDERED: Ondansetron PF 4 MG/2 ML Vial IVP PRN (14:34)
[2022-08-11] MEDS: Nicotine 14 MG PATCH TD SCH (18:04)
[2022-08-11 18:36] VITALS: BMI 25.3
[2022-08-12 01:24] LABS: Hemoglobin 6.2 g/dL (12.0-16.0); Platelet Count 93 10x3/uL (130-400)
[2022-08-12 06:40] LABS: ALT (SGPT) 9 U/L (8-55); AST (SGOT) 22 U/L (5-34); Albumin 3.2 g/dL (3.5-5.0); Alkaline Phosphatase 73 U/L (40-110); Anion Gap 12 mmol/L (10-20); BUN (Urea Nitrogen) 15 mg/dL (9.8-20.1); Calc. Creatinine Clearance 72 mL/min (70-130); Calcium 8.4 mg/dL (7.8-10.44); Carbon Dioxide 23 mmol/L (22-29); Chloride 103 mmol/L (98-107); Estimated GFR 70; Glucose 150 mg/dL (70-105); Potassium 4.1 mmol/L (3.5-5.1); Protein, Total 7.2 g/dL (6.0-8.3); Sodium 134 mmol/L (136-145)
[2022-08-12 06:44] LABS: #Eosinphils 0.1 thou/uL (0.0-0.7); #Monocytes 0.2 thou/uL (0.11-0.59); #Neutrophils 1.2 thou/uL (1.40-6.50); %Basophils 0.5 % (0.0-1.0); %Eosinophils 4.4 % (0.0-10.0); %Lymphocytes 23.2 % (21.0-51.0); %Monocytes 11.8 % (0.0-10.0); %Neutrophils 59.6 % (42.0-75.0); Hemoglobin 7.9 g/dL (12.0-16.0); Mean Corpuscular HGB CONC 33.8 g/dL (32.0-36.0); Mean Corpuscular Hemoglobin 35.6 pg (27.0-31.0); Mean Platelet Volume 12.3 fL (7.4-10.4); RBC Distribution Width 24.4 % (11.5-14.5); Red Blood Cell (RBC) Count 2.22 mill/uL (4.20-5.40)
[2022-08-12 07:04] LABS: Manual Diff?? YES; Platelet Count 116 10x3/uL (130-400)
[2022-08-12 07:35] LABS: Anisocytosis MODERATE=16-30 cells HPF (0-5); Band 5 % (5-11); CellaVision Operator ID LAB.GE; Eosinophils 2 % (0-10); Lymphocytes 23 % (21-51); Monocytes 8 % (0-10); Neutrophil 61 % (42-75); Ovalocytes SLIGHT = 2-5 cells HPF (0-1); Platelet Morphology Comment Platelets Decreased; Polychromasia MODERATE = 3-4 cells HPF (0-2); RBC Morphology Within Normal Limits; Total Cell Count 101
[2022-08-12 08:12] LABS: Mean Corpuscular Volume 105.4 fl (78.0-98.0)
[2022-08-12] MEDS: Nicotine 14 MG PATCH TD SCH ×2 (16:37→16:55)
[2022-08-12 17:42] VITALS: BP 119/78; TEMP 99.9
[2022-08-12] MEDS ORDERED: Non-Formulary Item 1 EACH (Ursodiol [Ursodiol] 500 MG Tablet) PO SCH (21:00)
[2022-08-13] MEDS ORDERED: Levothyroxine Sodium 100 MCG TAB PO SCH (06:00)
[2022-08-13] MEDS ORDERED: Spironolactone 25 MG TAB PO SCH (08:00)
[2022-08-13] MEDS ORDERED: Atorvastatin Calcium 20 MG TAB PO SCH (09:00)
== END 2022-08-12 18:40 | disposition home or self-care (01) | DRG 809 ==
LOC: ERS 11:27 → T4-B 15:57
PROVIDERS: ADMIT Internal Medicine; ATTEND Nurse Practitioner Family
PROC: 30233N1 Transfusion of Nonautologous Red Blood Cells into Peripheral Vein, Percutaneous Approach (ICD-10-PCS; principal; 2022-08-11)
DX: D61.811 Other drug-induced pancytopenia (principal); D59.12 Cold autoimmune hemolytic anemia; E03.9 Hypothyroidism, unspecified; K75.4 Autoimmune hepatitis; T45.1X5A Adverse effect of antineoplastic and immunosuppressive drugs, initial encounter; Z91.041 Radiographic dye allergy status; Z79.890 Hormone replacement therapy; Z79.899 Other long term (current) drug therapy
CPT/HCPCS: 36415; 36430; 80048; 80053; 82105; 83010; 83615; 84439; 84443; 85025; 85046; 86850; 86900; 86901; 86921; 99284; P9016

== ENCOUNTER 2023-04-03 11:56 | Inpatient (IN) | payer BC ==
[2023-04-03 13:31] LABS: Phosphorus 2.6 mg/dL (2.3-4.7)
[2023-04-03 13:35] LABS: ALT (SGPT) 30 U/L (8-55); AST (SGOT) 66 U/L (5-34); Albumin 2.6 g/dL (3.5-5.0); Alkaline Phosphatase 170 U/L (40-110); Anion Gap 10 mmol/L (10-20); BUN (Urea Nitrogen) 12 mg/dL (9.8-20.1); Bilirubin, Total 5.6 mg/dL (0.2-1.2); Calc. Creatinine Clearance 0 mL/min (70-130); Calcium 7.9 mg/dL (7.8-10.44); Carbon Dioxide 24 mmol/L (22-29); Chloride 105 mmol/L (98-107); Estimated GFR 57; Globulin 4.2 g/dL (2.4-3.5); Glucose 386 mg/dL (70-105); Lipase 114 U/L (8-78); Magnesium 1.6 mg/dL (1.6-2.6); Potassium 4.1 mmol/L (3.5-5.1); Protein, Total 6.8 g/dL (6.0-8.3); Sodium 135 mmol/L (136-145)
[2023-04-03 13:38] LABS: Troponin I Less than 0.010 ng/mL (< 0.028)
[2023-04-03 13:48] LABS: Bacteria/HPF None Seen HPF (None Seen); Bilirubin Negative (Negative); Blood, Urine Negative (Negative); CAUTI Indications for Culture Acute Hematuria; Clarity Clear (Clear); Glucose, Urine (Dipstick) 500 mg/dL (Negative); Ketone, Urine Negative (Negative); Leukocyte Negative Leu/uL (Negative); Nitrite Negative (Negative); Protein, Urine (Dipstick) Negative (Neg-Trace); RBC/HPF 0-3 HPF (0-3); Specific Gravity, Urine 1.018 (1.002-1.036); Squamous Epithelial 0-3 HPF (0-3); Urobilinogen 12 mg/dL (Less than 2); WBC/HPF 0-3 HPF (0-3); pH, Urine 6.5 (5.0-9.0)
[2023-04-03 13:50] LABS: Urine Culture Reflex No No
[2023-04-03 14:12] LABS: #Monocytes 0.1 thou/uL (0.11-0.59); #Neutrophils 0.9 thou/uL (1.40-6.50); %Basophils 0.7 % (0.0-1.0); %Eosinophils 2.1 % (0.0-10.0); %Lymphocytes 24.3 % (21.0-51.0); %Monocytes 9.7 % (0.0-10.0); %Neutrophils 62.5 % (42.0-75.0); Hematocrit 24.5 % (36.0-47.0); Hemoglobin 9.1 g/dL (12.0-16.0); Mean Corpuscular HGB CONC 37.1 g/dL (32.0-36.0); Mean Corpuscular Hemoglobin 42.7 pg (27.0-31.0); Mean Platelet Volume 11.4 fL (7.4-10.4); Platelet Count 65 10x3/uL (130-400); RBC Distribution Width 17.8 % (11.5-14.5); Red Blood Cell (RBC) Count 2.13 mill/uL (4.20-5.40); White Blood Cell (WBC) Count 1.4 10x3/uL (4.8-10.8)
[2023-04-03 14:30] LABS: Anisocytosis SLIGHT = 6-15 cells (100X) (0-5/hpf); Macrocytosis SLIGHT = 6-15 cells (100X) (0-5/hpf); Ovalocytes SLIGHT = 2-5 cells (100X) (0-1/hpf); Platelet Adequacy Comment Appears Decreased; Polychromasia SLIGHT = 2-3 cells (100X) (0-2/hpf)
[2023-04-03 15:23] LABS: INR-International Normal Ratio 1.6; Prothrombin Time 19.8 sec (12.0-14.7)
[2023-04-03 15:24] LABS: PTT 32.2 sec (22.9-36.1)
[2023-04-03] MEDS ORDERED: Lactulose 20 GM (30 mL) UDCUP ONE (15:57)
[2023-04-03] MEDS ORDERED: Haloperidol Lactate 5 MG/ML VIAL ONE ×2 (16:18→16:57)
[2023-04-03] MEDS ORDERED: Lactulose 10 GM/15 ML Oral Solution PR SCH (16:30)
[2023-04-03] MEDS ORDERED: Acetaminophen 650 MG Suppository PR PRN (17:53)
[2023-04-03] MEDS ORDERED: Ondansetron PF 4 MG/2 ML Vial IVP PRN (17:53)
[2023-04-03] MEDS ORDERED: Glucagon 1 MG/ML KIT IM PRN (17:59)
[2023-04-03] MEDS ORDERED: Dextrose 50% Abboject 50 ML SYRINGE SLOW IVP PRN (17:59)
[2023-04-03] MEDS ORDERED: HumaLOG 300 UNITS/3 ML VIAL SC PRN (17:59)
[2023-04-03] MEDS ORDERED: Dextrose 5% in Water 1,000 ML IV PRN (17:59)
[2023-04-03] MEDS ORDERED: cefTRIAXone (ROCEPHIN) 500 MG VIAL ONE (18:20)
[2023-04-03] MEDS ORDERED: Pantoprazole 40 MG VIAL IVP SCH (18:30)
[2023-04-03] MEDS ORDERED: Meropenem 1 GM in Sodium Chloride 0.9% 100 ML IVPB SCH ×2 (18:30→22:00)
[2023-04-03 19:28] LABS: Hemoglobin A1c 7.4 % (4.0-6.0)
[2023-04-03 21:11] VITALS: BMI 27.2
[2023-04-04] MEDS ORDERED: Pantoprazole 40 MG VIAL ONE ×2 (00:53→10:08)
[2023-04-04] MEDS: Lactulose 20 GM (30 mL) UDCUP PO SCH ×6 (02:45→21:21)
[2023-04-04 03:31] LABS: INR-International Normal Ratio 1.7; PTT 33.9 sec (22.9-36.1); Prothrombin Time 20.5 sec (12.0-14.7)
[2023-04-04 03:58] LABS: ALT (SGPT) 27 U/L (8-55); AST (SGOT) 54 U/L (5-34); Albumin 2.4 g/dL (3.5-5.0); Alkaline Phosphatase 134 U/L (40-110); Anion Gap 9 mmol/L (10-20); BUN (Urea Nitrogen) 10 mg/dL (9.8-20.1); Calc. Creatinine Clearance 62 mL/min (70-130); Calcium 8.2 mg/dL (7.8-10.44); Carbon Dioxide 24 mmol/L (22-29); Cardiac Risk 6.2 (Less than 4.5); Chloride 106 mmol/L (98-107); Cholesterol 81 mg/dl (< 200 Desired); Estimated GFR 57; Globulin 3.7 g/dL (2.4-3.5); Glucose 290 mg/dL (70-105); HDL Cholesterol 13 mg/dL (>60 Neg Risk); LDL Cholesterol, Calculated 52 mg/dL; Magnesium 1.5 mg/dL (1.6-2.6); Potassium 3.6 mmol/L (3.5-5.1); Protein, Total 6.1 g/dL (6.0-8.3); Sodium 135 mmol/L (136-145); Triglycerides 78 mg/dL (Less than 150)
[2023-04-04] MEDS ORDERED: Meropenem 1 GM in Sodium Chloride 0.9% 100 ML IVPB SCH (05:00)
[2023-04-04 06:27] LABS: Hemoglobin 7.8 g/dL (12.0-16.0); Mean Corpuscular HGB CONC 33.9 g/dL (32.0-36.0); Mean Corpuscular Volume 117.9 fl (78.0-98.0); Mean Platelet Volume 11.7 fL (7.4-10.4); RBC Distribution Width 17.4 % (11.5-14.5); Red Blood Cell (RBC) Count 1.95 mill/uL (4.20-5.40); White Blood Cell (WBC) Count 1.6 10x3/uL (4.8-10.8)
[2023-04-04] MEDS: Meropenem 1 GM in Sodium Chloride 0.9% 100 ML IVPB SCH ×3 (06:30→23:44)
[2023-04-04 06:34] LABS: Platelet Count 55 10x3/uL (130-400)
[2023-04-04 06:35] LABS: Delete Auto Diff?? YES; Manual Diff?? YES
[2023-04-04 07:09] LABS: Band 15 % (5-11); Eosinophils 1 % (0-10); Lymphocytes 27 % (21-51); Monocytes 9 % (0-10); Neutrophil 46 % (42-75)
[2023-04-04] MEDS ORDERED: Electrolyte Replacement Protocol 1 EACH FS SCH (07:15)
[2023-04-04 09:28] LABS: Free T4 (Free Thyroxine) 1.32 ng/dL (0.70-1.48)
[2023-04-04] MEDS ORDERED: Magnesium 2 GM/50 ML BAG (IN WATER) ONE ×2 (10:07→11:15)
[2023-04-04] MEDS ORDERED: Lactulose 20 GM (30 mL) UDCUP ONE (10:08)
[2023-04-04] MEDS: Magnesium 2 GM/50 ML(in water) 2 GM in Premix 1 BAG IVPB SCH ×2 (10:41→11:38)
[2023-04-04] MEDS: Pantoprazole 40 MG VIAL IVP SCH (10:42)
[2023-04-04] MEDS ORDERED: Albuterol HFA (OR) 200 PUFF INH INH PRN (17:35)
[2023-04-04] MEDS ORDERED: Rifaximin 550 MG TAB PO SCH (21:00)
[2023-04-04] MEDS ORDERED: Rifaximin 200 MG TAB PO SCH (21:00)
[2023-04-04] MEDS: HumaLOG 300 UNITS/3 ML VIAL SC PRN (21:21)
[2023-04-05] MEDS: HumaLOG 300 UNITS/3 ML VIAL SC PRN ×2 (04:08→22:24)
[2023-04-05] MEDS: Meropenem 1 GM in Sodium Chloride 0.9% 100 ML IVPB SCH ×3 (05:31→22:27)
[2023-04-05 05:48] LABS: INR-International Normal Ratio 1.6; Prothrombin Time 20.1 sec (12.0-14.7)
[2023-04-05 05:49] LABS: PTT 32.9 sec (22.9-36.1)
[2023-04-05] MEDS: Levothyroxine Sodium 100 MCG TAB PO SCH (05:49)
[2023-04-05 06:15] LABS: Hematocrit 23.6 % (36.0-47.0); Hemoglobin 8.2 g/dL (12.0-16.0); Mean Corpuscular HGB CONC 34.7 g/dL (32.0-36.0); Mean Corpuscular Hemoglobin 40.4 pg (27.0-31.0); Mean Corpuscular Volume 116.3 fl (78.0-98.0); Mean Platelet Volume 11.2 fL (7.4-10.4); RBC Distribution Width 17.7 % (11.5-14.5); Red Blood Cell (RBC) Count 2.03 mill/uL (4.20-5.40); White Blood Cell (WBC) Count 1.9 10x3/uL (4.8-10.8)
[2023-04-05 06:23] LABS: Delete Auto Diff?? YES; Manual Diff?? YES; Platelet Count 64 10x3/uL (130-400)
[2023-04-05 06:45] LABS: ALT (SGPT) 27 U/L (8-55); AST (SGOT) 53 U/L (5-34); Albumin 2.2 g/dL (3.5-5.0); Alkaline Phosphatase 131 U/L (40-110); Anion Gap 10 mmol/L (10-20); BUN (Urea Nitrogen) 11 mg/dL (9.8-20.1); Bilirubin, Total 4.1 mg/dL (0.2-1.2); Calc. Creatinine Clearance 60 mL/min (70-130); Calcium 7.8 mg/dL (7.8-10.44); Carbon Dioxide 21 mmol/L (22-29); Chloride 106 mmol/L (98-107); Estimated GFR 54; Globulin 3.7 g/dL (2.4-3.5); Magnesium 1.7 mg/dL (1.6-2.6); Protein, Total 5.9 g/dL (6.0-8.3); Sodium 133 mmol/L (136-145)
[2023-04-05 07:02] LABS: Band 2 % (5-11); Eosinophils 2 % (0-10); Lymphocytes 22 % (21-51); Macrocytosis MODERATE=16-30 cells (100X) (0-5/hpf); Monocytes 6 % (0-10); Neutrophil 67 % (42-75); Platelet Adequacy Comment Appears Decreased
[2023-04-05 07:36] LABS: Glucose 455 mg/dL (70-105)
[2023-04-05] MEDS ORDERED: Glucagon 1 MG/ML KIT IM PRN (07:52)
[2023-04-05] MEDS ORDERED: Dextrose 50% Abboject 50 ML SYRINGE SLOW IVP PRN (07:52)
[2023-04-05] MEDS ORDERED: Dextrose 5% in Water 1,000 ML IV PRN (07:52)
[2023-04-05] MEDS ORDERED: Magnesium 2 GM/50 ML(in water) 2 GM in Premix 1 BAG IVPB SCH (08:00)
[2023-04-05] MEDS: Pantoprazole 40 MG VIAL IVP SCH (08:20)
[2023-04-05] MEDS: Folic Acid 1 MG TAB PO SCH (08:20)
[2023-04-05] MEDS: Cyanocobalamin (Vitamin B-12) 1,000 MCG TAB PO SCH (08:20)
[2023-04-05] MEDS: Lactulose 20 GM (30 mL) UDCUP PO SCH ×3 (08:20→20:35)
[2023-04-05] MEDS: Insulin Regular 300 UNITS/3 ML VIAL SC PRN ×2 (08:40→16:08)
[2023-04-05] MEDS ORDERED: Rifaximin 200 MG TAB PO SCH (09:00)
[2023-04-05] MEDS ORDERED: Sodium Bicarbonate 2.5 MEQ/5 ML SDV ONE (10:51)
[2023-04-05] MEDS ORDERED: Lidocaine 1% PF 5 ML VIAL ONE (10:51)
[2023-04-05 13:39] LABS: RBC Count-Automated (BF) 1195 /cu.mm; WBC/Nucleated-Auto (BF) 251 /cu.mm
[2023-04-05 14:20] LABS: BF Color Yellow; Body Fluid Source Ascites Body Fluid; Clarity Clear (Clear); Tube # EDTA
[2023-04-05 14:21] LABS: BF Segmented Neutrophils 9 %; Cell Count Non Hematic 59 %; Lymphocytes 30 %
[2023-04-05] MEDS: glipiZIDE 5 MG TAB PO SCH (16:07)
[2023-04-06] MEDS: HumaLOG 300 UNITS/3 ML VIAL SC PRN ×2 (00:33→06:27)
[2023-04-06 06:18] LABS: ALT (SGPT) 28 U/L (8-55); AST (SGOT) 60 U/L (5-34); Albumin 2.1 g/dL (3.5-5.0); Alkaline Phosphatase 134 U/L (40-110); Anion Gap 9 mmol/L (10-20); BUN (Urea Nitrogen) 12 mg/dL (9.8-20.1); Bilirubin, Total 3.5 mg/dL (0.2-1.2); Calc. Creatinine Clearance 67 mL/min (70-130); Calcium 7.5 mg/dL (7.8-10.44); Carbon Dioxide 20 mmol/L (22-29); Chloride 107 mmol/L (98-107); Estimated GFR 62; Globulin 3.4 g/dL (2.4-3.5); Glucose 307 mg/dL (70-105); Magnesium 1.9 mg/dL (1.6-2.6); Protein, Total 5.5 g/dL (6.0-8.3); Sodium 132 mmol/L (136-145)
[2023-04-06] MEDS: Levothyroxine Sodium 100 MCG TAB PO SCH (06:20)
[2023-04-06] MEDS: Meropenem 1 GM in Sodium Chloride 0.9% 100 ML IVPB SCH (06:21)
[2023-04-06] MEDS ORDERED: Magnesium 2 GM/50 ML(in water) 2 GM in Premix 1 BAG IVPB SCH (08:00)
[2023-04-06 08:06] LABS: #Eosinphils 0.1 thou/uL (0.0-0.7); #Monocytes 0.2 thou/uL (0.11-0.59); #Neutrophils 1.6 thou/uL (1.40-6.50); %Basophils 1.3 % (0.0-1.0); %Eosinophils 2.1 % (0.0-10.0); %Lymphocytes 22.6 % (21.0-51.0); %Monocytes 6.8 % (0.0-10.0); %Neutrophils 66.8 % (42.0-75.0); Hemoglobin 8.7 g/dL (12.0-16.0); Mean Platelet Volume 10.1 fL (7.4-10.4); White Blood Cell (WBC) Count 2.4 10x3/uL (4.8-10.8)
[2023-04-06] MEDS: Cyanocobalamin (Vitamin B-12) 1,000 MCG TAB PO SCH (08:08)
[2023-04-06] MEDS: glipiZIDE 5 MG TAB PO SCH (08:09)
[2023-04-06] MEDS: Pantoprazole 40 MG VIAL IVP SCH (08:09)
[2023-04-06] MEDS: Lactulose 20 GM (30 mL) UDCUP PO SCH ×2 (08:09→21:37)
[2023-04-06] MEDS: Folic Acid 1 MG TAB PO SCH (08:09)
[2023-04-06 08:21] LABS: Platelet Count 70 10x3/uL (130-400)
[2023-04-06 08:23] LABS: Mean Corpuscular HGB CONC 32.2 g/dL (32.0-36.0)
[2023-04-06 08:24] LABS: INR-International Normal Ratio 1.9; Prothrombin Time 22.3 sec (12.0-14.7)
[2023-04-06] MEDS: Insulin Regular 300 UNITS/3 ML VIAL SC PRN ×3 (09:45→21:38)
[2023-04-06] MEDS ORDERED: Alogliptin 6.25 MG TAB PO SCH (10:30)
[2023-04-06] MEDS: Rifaximin 550 MG TAB PO SCH (21:37)
[2023-04-07] MEDS: Insulin Regular 300 UNITS/3 ML VIAL SC PRN ×3 (00:13→13:30)
[2023-04-07 05:03] LABS: ALT (SGPT) 29 U/L (8-55); AST (SGOT) 62 U/L (5-34); Alkaline Phosphatase 184 U/L (40-110); Anion Gap 8 mmol/L (10-20); BUN (Urea Nitrogen) 15 mg/dL (9.8-20.1); Bilirubin, Total 3.7 mg/dL (0.2-1.2); Calc. Creatinine Clearance 58 mL/min (70-130); Calcium 7.3 mg/dL (7.8-10.44); Carbon Dioxide 24 mmol/L (22-29); Chloride 102 mmol/L (98-107); Estimated GFR 52; Globulin 3.6 g/dL (2.4-3.5); Magnesium 1.9 mg/dL (1.6-2.6); Potassium 4.6 mmol/L (3.5-5.1); Protein, Total 5.6 g/dL (6.0-8.3); Sodium 129 mmol/L (136-145)
[2023-04-07 05:13] LABS: Glucose 469 mg/dL (70-105)
[2023-04-07 05:23] LABS: INR-International Normal Ratio 1.8; Prothrombin Time 21.5 sec (12.0-14.7)
[2023-04-07 05:33] LABS: PTT 36.3 sec (22.9-36.1)
[2023-04-07] MEDS: Levothyroxine Sodium 100 MCG TAB PO SCH (05:49)
[2023-04-07 07:00] LABS: Hematocrit 22.4 % (36.0-47.0); Hemoglobin 7.8 g/dL (12.0-16.0); Mean Corpuscular HGB CONC 34.8 g/dL (32.0-36.0); Mean Corpuscular Hemoglobin 39.4 pg (27.0-31.0); Mean Corpuscular Volume 113.1 fl (78.0-98.0); Mean Platelet Volume 11.7 fL (7.4-10.4); RBC Distribution Width 17.2 % (11.5-14.5); Red Blood Cell (RBC) Count 1.98 mill/uL (4.20-5.40); White Blood Cell (WBC) Count 1.9 10x3/uL (4.8-10.8)
[2023-04-07 07:02] LABS: Platelet Count 53 10x3/uL (130-400)
[2023-04-07 07:03] LABS: Delete Auto Diff?? YES
[2023-04-07 07:32] LABS: Band 1 % (5-11); Eosinophils 3 % (0-10); Lymphocytes 24 % (21-51); Macrocytosis SLIGHT = 6-15 cells (100X) (0-5/hpf); Monocytes 6 % (0-10); Neutrophil 64 % (42-75); Platelet Adequacy Comment Platelets Decreased; Polychromasia SLIGHT = 2-3 cells (100X) (0-2/hpf)
[2023-04-07] MEDS ORDERED: Spironolactone 25 MG TAB PO SCH (08:00)
[2023-04-07] MEDS ORDERED: Magnesium 2 GM/50 ML(in water) 2 GM in Premix 1 BAG IVPB SCH (08:00)
[2023-04-07] MEDS ORDERED: Insulin Glargine 30 UNITS/0.3 ML VIAL SC SCH (09:00)
[2023-04-07] MEDS ORDERED: Alogliptin 6.25 MG TAB PO SCH (09:00)
[2023-04-07] MEDS ORDERED: Furosemide 20 MG TAB PO SCH (09:00)
[2023-04-07] MEDS: Cyanocobalamin (Vitamin B-12) 1,000 MCG TAB PO SCH (09:20)
[2023-04-07] MEDS: Pantoprazole 40 MG VIAL IVP SCH (09:21)
[2023-04-07] MEDS: Lactulose 20 GM (30 mL) UDCUP PO SCH (09:21)
[2023-04-07] MEDS: Rifaximin 550 MG TAB PO SCH (09:21)
[2023-04-07] MEDS: Folic Acid 1 MG TAB PO SCH (09:21)
[2023-04-07 11:56] VITALS: BP 127/71; TEMP 98.7
== END 2023-04-07 14:30 | disposition home or self-care (01) | DRG 441 ==
LOC: ERS 11:56 → ERHOLD 14:28 → MSONC 04-04 14:25 → 2NO 04-04 21:13
PROVIDERS: ADMIT Family Medicine; ATTEND Internal Medicine
PROC: 0W9G3ZZ Drainage of Peritoneal Cavity, Percutaneous Approach (ICD-10-PCS; principal; 2023-04-05)
DX: K76.82 Hepatic encephalopathy (principal); G93.41 Metabolic encephalopathy; D59.12 Cold autoimmune hemolytic anemia; D61.818 Other pancytopenia; R18.8 Other ascites; K74.60 Unspecified cirrhosis of liver; E03.9 Hypothyroidism, unspecified; K75.4 Autoimmune hepatitis; D70.9 Neutropenia, unspecified; E11.9 Type 2 diabetes mellitus without complications; J45.909 Unspecified asthma, uncomplicated; Z79.890 Hormone replacement therapy; Z98.890 Other specified postprocedural states; Z79.899 Other long term (current) drug therapy; Z91.041 Radiographic dye allergy status; Z79.51 Long term (current) use of inhaled steroids; Z79.84 Long term (current) use of oral hypoglycemic drugs; Z90.710 Acquired absence of both cervix and uterus
CPT/HCPCS: 36415; 36416; 49083; 51701; 70450; 71045; 76705; 80053; 80061; 81001; 82010; 82042; 82140; 82533; 82607; 83036; 83605; 83690; 83735; 84100; 84157; 84439; 84443; 84481; 84484; 85025; 85060; 85610; 85730; 86850; 86870; 86880; 86900; 86901; 86921; 87040; 87070; 87205; 89051; 93005; 96365; 96375; 96376; C9113; J0696; J1630; J1815; J2185; J3475; J3490

== ENCOUNTER 2023-06-08 08:48 | Inpatient (IN) | payer BC ==
[2023-06-08] MEDS ORDERED: Lactulose 20 GM (30 mL) UDCUP ONE ×2 (10:00→15:06)
[2023-06-08 10:08] LABS: Actual Bicarbonate (HCO3v) 23.3 mEq/L (22-28); Analyzer IN Cardio ER; Base Excess 1.6 mEq/L (-2.0 to +3.0); Hemoglobin (Hb) 10.1 g/dL (11.7-16.0); pH (venous) 7.522 (7.32-7.43)
[2023-06-08 10:09] LABS: Calcium, Ionized (venous) 1.04 mmol/L (1.16-1.32); Chloride (VBG) 100 mmol/L (98-106); Potassium (VBG) 5.86 mmol/L (3.70-5.30); Sodium 129 mmol/L (133-146)
[2023-06-08 10:22] LABS: ALT (SGPT) 37 U/L (8-55); AST (SGOT) 49 U/L (5-34); Albumin 3.1 g/dL (3.5-5.0); Alkaline Phosphatase 171 U/L (40-110); Anion Gap 13 mmol/L (10-20); BUN (Urea Nitrogen) 53 mg/dL (9.8-20.1); Bilirubin, Total 4.7 mg/dL (0.2-1.2); Calc. Creatinine Clearance 0 mL/min (70-130); Calcium 9.2 mg/dL (7.8-10.44); Carbon Dioxide 21 mmol/L (22-29); Chloride 100 mmol/L (98-107); Estimated GFR 27; Globulin 4.5 g/dL (2.4-3.5); Glucose 230 mg/dL (70-105); Magnesium 2.3 mg/dL (1.6-2.6); Protein, Total 7.6 g/dL (6.0-8.3); Sodium 129 mmol/L (136-145)
[2023-06-08 10:26] LABS: #Eosinphils 0.1 thou/uL (0.0-0.7); #Monocytes 0.3 thou/uL (0.11-0.59); #Neutrophils 3.2 thou/uL (1.40-6.50); %Basophils 0.5 % (0.0-1.0); %Eosinophils 2.5 % (0.0-10.0); %Lymphocytes 14.5 % (21.0-51.0); %Monocytes 7.1 % (0.0-10.0); %Neutrophils 74.2 % (42.0-75.0); Hematocrit 24.2 % (36.0-47.0); Hemoglobin 9.5 g/dL (12.0-16.0); Mean Corpuscular HGB CONC 39.3 g/dL (32.0-36.0); Mean Corpuscular Hemoglobin 40.1 pg (27.0-31.0); Mean Corpuscular Volume 102.1 fl (78.0-98.0); Mean Platelet Volume 11.2 fL (7.4-10.4); Platelet Count 113 10x3/uL (130-400); RBC Distribution Width 17.2 % (11.5-14.5); Red Blood Cell (RBC) Count 2.37 mill/uL (4.20-5.40); White Blood Cell (WBC) Count 4.3 10x3/uL (4.8-10.8)
[2023-06-08 11:20] LABS: Anisocytosis SLIGHT = 6-15 cells HPF (0-5); CellaVision Operator ID LAB.KW3; Platelet Adequacy Comment Platelets Decreased
[2023-06-08] MEDS ORDERED: Acetaminophen 325 MG TAB PO PRN (13:32)
[2023-06-08] MEDS ORDERED: Ondansetron ODT 4 MG TAB PO PRN (13:32)
[2023-06-08] MEDS ORDERED: Dextrose 5% in Water 1,000 ML IV PRN (13:34)
[2023-06-08] MEDS ORDERED: Dextrose 50% Abboject 50 ML SYRINGE SLOW IVP PRN (13:34)
[2023-06-08] MEDS ORDERED: Glucagon 1 MG/ML KIT IM PRN (13:34)
[2023-06-08 13:46] LABS: Bacteria/HPF None Seen HPF (None Seen); Bilirubin Negative (Negative); Blood, Urine Negative (Negative); CAUTI Indications for Culture Alt mental st,lethar; Clarity Clear (Clear); Glucose, Urine (Dipstick) Normal (Negative); Ketone, Urine Negative (Negative); Leukocyte Negative Leu/uL (Negative); Nitrite Negative (Negative); Protein, Urine (Dipstick) Negative (Neg-Trace); RBC/HPF None Seen HPF (0-3); Specific Gravity, Urine 1.021 (1.002-1.036); Squamous Epithelial None Seen HPF (0-3); Urobilinogen Normal mg/dL (Less than 2); WBC/HPF 0-3 HPF (0-3)
[2023-06-08 13:49] LABS: Amphetamine Not Detected (NotDetected); Barbiturates Screen Not Detected (NotDetected); Benzodiazepine Screen Not Detected (NotDetected); Cocaine Metabolite Screen Not Detected (NotDetected); Methadone Not Detected (NotDetected); Methamphetamine Not Detected (NotDetected); Opiate Screen Not Detected (NotDetected); Oxycodone Screen Not Detected (NotDetected); Phencyclidine (PCP) Not Detected (NotDetected); THC/Cannabinoid Screen Not Detected (NotDetected); Tricyclic Screen Not Detected (NotDetected); Urine Culture Reflex No No
[2023-06-08 17:23] VITALS: BMI 20.5
[2023-06-08] MEDS: Lactulose 20 GM (30 mL) UDCUP PO SCH (17:43)
[2023-06-08] MEDS: Albumin 25% 25 GM (100 mL) BOT IVPB SCH (21:45)
[2023-06-08] MEDS: Lactated Ringer's 1,000 ML IV SCH (21:50)
[2023-06-08] MEDS: Insulin Glargine 30 UNITS/0.3 ML VIAL SC SCH (21:52)
[2023-06-08] MEDS: Rifaximin 550 MG TAB PO SCH ×2 (22:26→23:13)
[2023-06-08] MEDS: Famotidine 20 MG TAB PO SCH (22:28)
[2023-06-08] MEDS ORDERED: Rifaximin 200 MG TAB PO SCH (22:30)
[2023-06-09 04:53] LABS: ALT (SGPT) 34 U/L (8-55); AST (SGOT) 45 U/L (5-34); Albumin 3.1 g/dL (3.5-5.0); Alkaline Phosphatase 104 U/L (40-110); Anion Gap 13 mmol/L (10-20); BUN (Urea Nitrogen) 44 mg/dL (9.8-20.1); Bilirubin, Total 4.6 mg/dL (0.2-1.2); Calc. Creatinine Clearance 32 mL/min (70-130); Calcium 8.9 mg/dL (7.8-10.44); Carbon Dioxide 19 mmol/L (22-29); Chloride 109 mmol/L (98-107); Estimated GFR 34; Globulin 3.9 g/dL (2.4-3.5); Glucose 109 mg/dL (70-105); Potassium 3.9 mmol/L (3.5-5.1); Sodium 137 mmol/L (136-145)
[2023-06-09] MEDS: Levothyroxine Sodium 100 MCG TAB PO SCH (05:38)
[2023-06-09 05:40] LABS: #Eosinphils 0.1 thou/uL (0.0-0.7); #Monocytes 0.2 thou/uL (0.11-0.59); #Neutrophils 1.9 thou/uL (1.40-6.50); %Basophils 0.7 % (0.0-1.0); %Eosinophils 3.5 % (0.0-10.0); %Lymphocytes 23.7 % (21.0-51.0); %Monocytes 6.6 % (0.0-10.0); %Neutrophils 64.5 % (42.0-75.0); Hematocrit 20.6 % (36.0-47.0); Hemoglobin 7.7 g/dL (12.0-16.0); Mean Corpuscular HGB CONC 37.4 g/dL (32.0-36.0); Mean Corpuscular Hemoglobin 38.7 pg (27.0-31.0); Mean Corpuscular Volume 103.5 fl (78.0-98.0); Mean Platelet Volume 10.9 fL (7.4-10.4); RBC Distribution Width 17.3 % (11.5-14.5); Red Blood Cell (RBC) Count 1.99 mill/uL (4.20-5.40); White Blood Cell (WBC) Count 2.9 10x3/uL (4.8-10.8)
[2023-06-09 05:44] LABS: Platelet Count 89 10x3/uL (130-400)
[2023-06-09] MEDS ORDERED: Spironolactone 25 MG TAB PO SCH (09:00)
[2023-06-09] MEDS ORDERED: Rifaximin 200 MG TAB PO SCH (09:00)
[2023-06-09] MEDS ORDERED: Furosemide 20 MG TAB PO SCH (09:00)
[2023-06-09] MEDS: Alogliptin 6.25 MG TAB PO SCH (09:27)
[2023-06-09] MEDS: Folic Acid 1 MG TAB PO SCH (09:28)
[2023-06-09] MEDS: azaTHIOprine 50 MG TAB PO SCH (09:28)
[2023-06-09] MEDS: Rifaximin 550 MG TAB PO SCH (09:28)
[2023-06-09] MEDS: Cyanocobalamin (Vitamin B-12) 1,000 MCG TAB PO SCH (09:28)
[2023-06-09] MEDS: Lactated Ringer's 1,000 ML IV SCH (11:27)
[2023-06-09] MEDS: Albumin 25% 25 GM (100 mL) BOT IVPB SCH (11:27)
[2023-06-09] MEDS: HumaLOG 300 UNITS/3 ML VIAL SC PRN (16:14)
[2023-06-09] MEDS ORDERED: Famotidine 20 MG TAB PO SCH (21:00)
[2023-06-10 04:50] LABS: ALT (SGPT) 24 U/L (8-55); AST (SGOT) 42 U/L (5-34); Albumin 3.4 g/dL (3.5-5.0); Alkaline Phosphatase 151 U/L (40-110); Anion Gap 12 mmol/L (10-20); BUN (Urea Nitrogen) 51 mg/dL (9.8-20.1); Bilirubin, Total 3.1 mg/dL (0.2-1.2); Calc. Creatinine Clearance 31 mL/min (70-130); Calcium 8.7 mg/dL (7.8-10.44); Carbon Dioxide 22 mmol/L (22-29); Chloride 101 mmol/L (98-107); Estimated GFR 33; Globulin 2.9 g/dL (2.4-3.5); Glucose 373 mg/dL (70-105); Potassium 4.2 mmol/L (3.5-5.1); Protein, Total 6.3 g/dL (6.0-8.3); Sodium 131 mmol/L (136-145)
[2023-06-10] MEDS: HumaLOG 300 UNITS/3 ML VIAL SC PRN (06:06)
[2023-06-10 10:50] LABS: Hematocrit 13.3 % (36.0-47.0); Hemoglobin 6.8 g/dL (12.0-16.0)
[2023-06-10 11:17] LABS: Iron Binding Capacity, Total 131 mcg/dL (265-497)
[2023-06-10 11:18] LABS: Iron 111 ug/dL (50-170)
[2023-06-10] MEDS ORDERED: Albuterol 200 PUFF INH INH PRN (12:09)
[2023-06-10] MEDS: Insulin Glargine 30 UNITS/0.3 ML VIAL SC SCH ×2 (12:27→23:30)
[2023-06-10 17:10] LABS: Glucose 438 mg/dL (70-105)
[2023-06-10] MEDS: Furosemide 40 MG (4 mL) VIAL SLOW IVP SCH (18:38)
[2023-06-10] MEDS ORDERED: Insulin Glargine 30 UNITS/0.3 ML VIAL SC SCH (21:00)
[2023-06-10 22:42] LABS: Hematocrit 18.1 % (36.0-47.0); Hemoglobin 8.8 g/dL (12.0-16.0)
[2023-06-10 23:05] LABS: Critical Call Chemistry NUR.BS1@2305; Glucose 467 mg/dL (70-105)
[2023-06-10] MEDS: Insulin Regular 300 UNITS/3 ML VIAL SC SCH (23:33)
[2023-06-11 02:42] LABS: Glucose 208 mg/dL (70-105)
[2023-06-11 03:05] LABS: #Eosinphils 0.1 thou/uL (0.0-0.7); #Monocytes 0.2 thou/uL (0.11-0.59); #Neutrophils 1.9 thou/uL (1.40-6.50); %Basophils 0.7 % (0.0-1.0); %Eosinophils 2.2 % (0.0-10.0); %Lymphocytes 18.5 % (21.0-51.0); %Monocytes 8.7 % (0.0-10.0); %Neutrophils 69.2 % (42.0-75.0); Hematocrit 23.2 % (36.0-47.0); Hemoglobin 8.7 g/dL (12.0-16.0); Mean Corpuscular HGB CONC 37.5 g/dL (32.0-36.0); Mean Corpuscular Hemoglobin 37.3 pg (27.0-31.0); Mean Corpuscular Volume 99.6 fl (78.0-98.0); Mean Platelet Volume 11.4 fL (7.4-10.4); RBC Distribution Width 21.3 % (11.5-14.5); Red Blood Cell (RBC) Count 2.33 mill/uL (4.20-5.40); White Blood Cell (WBC) Count 2.8 10x3/uL (4.8-10.8)
[2023-06-11 03:11] LABS: Platelet Count 63 10x3/uL (130-400)
[2023-06-11 03:14] LABS: ALT (SGPT) 30 U/L (8-55); AST (SGOT) 47 U/L (5-34); Albumin 3.3 g/dL (3.5-5.0); Alkaline Phosphatase 227 U/L (40-110); Anion Gap 12 mmol/L (10-20); BUN (Urea Nitrogen) 50 mg/dL (9.8-20.1); Bilirubin, Total 3.7 mg/dL (0.2-1.2); Calc. Creatinine Clearance 38 mL/min (70-130); Calcium 8.8 mg/dL (7.8-10.44); Carbon Dioxide 22 mmol/L (22-29); Chloride 103 mmol/L (98-107); Estimated GFR 42; Globulin 3.1 g/dL (2.4-3.5); Glucose 206 mg/dL (70-105); Protein, Total 6.4 g/dL (6.0-8.3); Sodium 133 mmol/L (136-145)
[2023-06-11 07:24] VITALS: BP 105/50; TEMP 97.6
[2023-06-11] MEDS: Ascorbic Acid 500 mg Chewable Tablet PO SCH (09:16)
== END 2023-06-11 10:34 | disposition home or self-care (01) | DRG 442 ==
LOC: ERS 08:48 → ERHOLD 13:36 → 2NO 16:53
PROVIDERS: ADMIT Student in an Organized Health Care Education/Training Program; ATTEND Hospitalist
PROC: 30233J1 Transfusion of Nonautologous Serum Albumin into Peripheral Vein, Percutaneous Approach (ICD-10-PCS; 2023-06-08)
PROC: 30233N1 Transfusion of Nonautologous Red Blood Cells into Peripheral Vein, Percutaneous Approach (ICD-10-PCS; principal; 2023-06-10)
DX: K76.82 Hepatic encephalopathy (principal); E72.20 Disorder of urea cycle metabolism, unspecified; E87.1 Hypo-osmolality and hyponatremia; N17.9 Acute kidney failure, unspecified; E87.20 Acidosis, unspecified; N18.4 Chronic kidney disease, stage 4 (severe); K75.4 Autoimmune hepatitis; D64.9 Anemia, unspecified; E87.5 Hyperkalemia; E11.22 Type 2 diabetes mellitus with diabetic chronic kidney disease; K74.60 Unspecified cirrhosis of liver; F17.210 Nicotine dependence, cigarettes, uncomplicated; Z88.6 Allergy status to analgesic agent; Z79.899 Other long term (current) drug therapy; Z90.710 Acquired absence of both cervix and uterus; Z98.890 Other specified postprocedural states; Z79.4 Long term (current) use of insulin; Z79.51 Long term (current) use of inhaled steroids; Z79.890 Hormone replacement therapy
CPT/HCPCS: 36415; 36416; 36430; 51701; 70450; 71045; 80053; 80306; 81001; 82140; 82805; 83540; 83550; 83605; 83735; 83970; 85014; 85018; 85025; 86850; 86870; 86880; 86900; 86901; 86904; 86921; 87040; 87086; 93005; 96360; J1815; J1940; J7120; J7500; P9016; P9047

== ENCOUNTER 2024-02-16 13:01 | Outpatient (CLI) | payer BC ==
[2024-02-16 14:09] LABS: ALT (SGPT) 117 U/L (8-55); AST (SGOT) 192 U/L (5-34); Albumin 2.6 g/dL (3.5-5.0); Alkaline Phosphatase 111 U/L (40-110); Anion Gap 12 mmol/L (10-20); BUN (Urea Nitrogen) 20 mg/dL (9.8-20.1); Bilirubin, Total 3.9 mg/dL (0.2-1.2); Calc. Creatinine Clearance 0 mL/min (70-130); Calcium 7.6 mg/dL (7.8-10.44); Carbon Dioxide 19 mmol/L (22-29); Chloride 108 mmol/L (98-107); Estimated GFR 47; Globulin 5.1 g/dL (2.4-3.5); Glucose 135 mg/dL (70-105); Potassium 3.8 mmol/L (3.5-5.1); Protein, Total 7.7 g/dL (6.0-8.3); Sodium 135 mmol/L (136-145)
[2024-02-16 16:02] LABS: #Basophils Less than 0.03 10x3/uL (0.0-0.2); %Basophils 0.7 % (0.0-1.0); %Lymphocytes 13.2 % (21.0-51.0); %Monocytes 7.1 % (0.0-10.0); %Neutrophils 72.9 % (42.0-75.0); Hemoglobin 9.8 g/dL (12.0-16.0); Mean Platelet Volume 11.6 fL (7.4-10.4); Platelet Count 67 10x3/uL (130-400)
== END 2024-02-16 13:02 | disposition home or self-care (01) ==
LOC: ULT 13:01
PROVIDERS: ATTEND Internal Medicine
DX: M79.89 Other specified soft tissue disorders (principal); L03.115 Cellulitis of right lower limb
CPT/HCPCS: 36415; 80053; 85025

== ENCOUNTER 2024-02-19 11:35 | Inpatient (IN) | payer BC ==
[2024-02-19 12:42] LABS: ALT (SGPT) 98 U/L (8-55); AST (SGOT) 214 U/L (5-34); Albumin 2.3 g/dL (3.5-5.0); Alkaline Phosphatase 118 U/L (40-110); Anion Gap 10 mmol/L (10-20); BUN (Urea Nitrogen) 16 mg/dL (9.8-20.1); Bilirubin, Total 3.8 mg/dL (0.2-1.2); Calc. Creatinine Clearance 0 mL/min (70-130); Calcium 7.7 mg/dL (7.8-10.44); Carbon Dioxide 18 mmol/L (22-29); Chloride 112 mmol/L (98-107); Estimated GFR 74; Globulin 5.4 g/dL (2.4-3.5); Glucose 180 mg/dL (70-105); Potassium 5.2 mmol/L (3.5-5.1); Protein, Total 7.7 g/dL (6.0-8.3); Sodium 135 mmol/L (136-145)
[2024-02-19] MEDS ORDERED: Lidocaine/Transparent Dressing 1 EACH KIT ONE (13:12)
[2024-02-19] MEDS ORDERED: cefTRIAXone (ROCEPHIN) 2 GM VIAL ONE (13:25)
[2024-02-19] MEDS ORDERED: Sodium Chloride 0.9% 0 ML ONE (13:25)
[2024-02-19 13:50] LABS: #Basophils 0.03 10x3/uL (0.0-0.2); %Basophils 1.3 % (0.0-1.0); %Eosinophils 5.5 % (0.0-10.0); %Lymphocytes 15.2 % (21.0-51.0); Hematocrit 25.9 % (36.0-47.0); Hemoglobin 9.3 g/dL (12.0-16.0); Mean Platelet Volume 11.6 fL (7.4-10.4); Platelet Count 72 10x3/uL (130-400); Red Blood Cell (RBC) Count 2.31 mill/uL (4.20-5.40)
[2024-02-19] MEDS ORDERED: Bacitracin 1 PK ONE (14:57)
[2024-02-19] MEDS ORDERED: Ondansetron ODT 4 MG TAB PO PRN (16:16)
[2024-02-19] MEDS ORDERED: Senokot S 8.6-50 MG TAB PO PRN (16:16)
[2024-02-19] MEDS ORDERED: Acetaminophen 325 MG TAB PO PRN (16:16)
[2024-02-19] MEDS ORDERED: Ondansetron PF 4 MG/2 ML Vial IVP PRN (16:16)
[2024-02-19] MEDS ORDERED: Calcium Carbonate 500 MG ChewTAB PO PRN (16:16)
[2024-02-19] MEDS ORDERED: Insulin Lispro 100 UNIT/ML 10 ML VIAL SC PRN ×2 (16:20)
[2024-02-19] MEDS ORDERED: Dextrose 50% Abboject 50 ML SYRINGE SLOW IVP PRN (16:20)
[2024-02-19] MEDS ORDERED: Dextrose 5% in Water 1,000 ML IV PRN (16:20)
[2024-02-19] MEDS ORDERED: Glucagon 1 MG/ML KIT IM PRN (16:20)
[2024-02-19 17:41] VITALS: BMI 27.9
[2024-02-19] MEDS: Vancomycin (BATCH) 2 GM in Premix 1 BAG IVPB SCH (18:37)
[2024-02-19] MEDS ORDERED: Vancomycin 1 GM in Premix 1 BAG IVPB SCH (21:00)
[2024-02-19] MEDS: Rifaximin 550 MG TAB PO SCH (21:05)
[2024-02-19] MEDS: Insulin Glargine 30 UNITS/0.3 ML VIAL SC SCH (21:07)
[2024-02-19] MEDS: Cefepime 2 GM in Sodium Chloride 0.9% 100 ML IVPB SCH (21:07)
[2024-02-19] MEDS: traMADol HCl 50 MG TAB PO PRN (23:58)
[2024-02-20] MEDS: Levothyroxine Sodium 25 MCG TAB PO SCH (05:30)
[2024-02-20 05:53] LABS: Hemoglobin A1c 4.5 % (4.0-6.0)
[2024-02-20 06:01] LABS: Vancomycin, Random 18.7 ug/mL (See Comment)
[2024-02-20 06:19] LABS: ALT (SGPT) 81 U/L (8-55); AST (SGOT) 187 U/L (5-34); Alkaline Phosphatase 92 U/L (40-110); Anion Gap 8 mmol/L (10-20); BUN (Urea Nitrogen) 13 mg/dL (9.8-20.1); Bilirubin, Total 2.9 mg/dL (0.2-1.2); Calc. Creatinine Clearance 74 mL/min (70-130); Calcium 7.1 mg/dL (7.8-10.44); Carbon Dioxide 19 mmol/L (22-29); Chloride 112 mmol/L (98-107); Estimated GFR 65; Globulin 4.6 g/dL (2.4-3.5); Glucose 122 mg/dL (70-105); Potassium 4.9 mmol/L (3.5-5.1); Protein, Total 6.6 g/dL (6.0-8.3); Sodium 134 mmol/L (136-145)
[2024-02-20 06:52] LABS: Mean Platelet Volume 12.3 fL (7.4-10.4); Platelet Count 54 10x3/uL (130-400); RBC Distribution Width 19.8 % (11.5-14.5)
[2024-02-20] MEDS ORDERED: Enoxaparin 40 MG (0.4 mL) SYRINGE SC SCH (09:00)
[2024-02-20] MEDS ORDERED: Vancomycin HCl 750 MG in Sodium Chloride 0.9% 250 ML 250 ML IVPB SCH (09:00)
[2024-02-20] MEDS: Furosemide 40 MG TAB PO SCH (09:09)
[2024-02-20] MEDS: Lactulose 20 GM (30 mL) UDCUP PO SCH (09:09)
[2024-02-20] MEDS: Rifaximin 200 MG TAB PO SCH (09:09)
[2024-02-20] MEDS: Folic Acid 1 MG TAB PO SCH (09:09)
[2024-02-20] MEDS: azaTHIOprine 50 MG TAB PO SCH (09:09)
[2024-02-20] MEDS: Pantoprazole DR 40 MG TAB PO SCH (09:10)
[2024-02-20 09:42] LABS: Band 4 % (5-11); Eosinophils 5 % (0-10); Lymphocytes 14 % (21-51); Monocytes 3 % (0-10); Neutrophil 74 % (42-75)
[2024-02-20] MEDS: CEFAZOLIN 2 GM in Sodium Chloride 0.9% 100 ML IVPB SCH (14:31)
[2024-02-22 05:53] LABS: ALT (SGPT) 63 U/L (8-55); AST (SGOT) 233 U/L (5-34); Alkaline Phosphatase 104 U/L (40-110); Anion Gap 9 mmol/L (10-20); BUN (Urea Nitrogen) 14 mg/dL (9.8-20.1); Bilirubin, Direct 1.4 mg/dL (0.1-0.3); Bilirubin, Total 3.2 mg/dL (0.2-1.2); Calc. Creatinine Clearance 64 mL/min (70-130); Calcium 7.3 mg/dL (7.8-10.44); Carbon Dioxide 20 mmol/L (22-29); Chloride 109 mmol/L (98-107); Estimated GFR 55; Glucose 150 mg/dL (70-105); Potassium 4.8 mmol/L (3.5-5.1); Sodium 133 mmol/L (136-145)
[2024-02-22 06:54] LABS: Hemoglobin 8.2 g/dL (12.0-16.0); Mean Corpuscular Volume 112.9 fL (78.0-98.0); Mean Platelet Volume 11.9 fL (7.4-10.4); Platelet Count 64 10x3/uL (130-400); RBC Distribution Width 18.6 % (11.5-14.5)
[2024-02-22 08:33] LABS: Hematocrit 24.6 % (36.0-47.0)
[2024-02-22 08:34] LABS: Mean Corpuscular HGB CONC 34.1 g/dL (32.0-36.0)
[2024-02-22 08:36] LABS: #Basophils Less than 0.03 10x3/uL (0.0-0.2); %Basophils 0.5 % (0.0-1.0); %Eosinophils 5.5 % (0.0-10.0); %Lymphocytes 21.2 % (21.0-51.0); %Monocytes 6.5 % (0.0-10.0); %Neutrophils 65.8 % (42.0-75.0)
[2024-02-23 07:21] LABS: Anion Gap 8 mmol/L (10-20); BUN (Urea Nitrogen) 15 mg/dL (9.8-20.1); Calc. Creatinine Clearance 78 mL/min (70-130); Calcium 6.9 mg/dL (7.8-10.44); Carbon Dioxide 21 mmol/L (22-29); Chloride 109 mmol/L (98-107); Estimated GFR 70; Glucose 166 mg/dL (70-105); Sodium 133 mmol/L (136-145)
[2024-02-23 08:49] LABS: #Basophils Less than 0.03 10x3/uL (0.0-0.2); %Basophils 0.5 % (0.0-1.0); %Eosinophils 4.7 % (0.0-10.0); %Lymphocytes 21.1 % (21.0-51.0); %Monocytes 6.6 % (0.0-10.0); %Neutrophils 66.6 % (42.0-75.0); Hematocrit 23.2 % (36.0-47.0); Mean Corpuscular HGB CONC 34.5 g/dL (32.0-36.0); Mean Corpuscular Hemoglobin 37.7 pg (27.0-31.0); Mean Corpuscular Volume 109.4 fL (78.0-98.0); Mean Platelet Volume 12.3 fL (7.4-10.4); Platelet Count 60 10x3/uL (130-400); RBC Distribution Width 15.5 % (11.5-14.5); Red Blood Cell (RBC) Count 2.12 mill/uL (4.20-5.40)
[2024-02-23] MEDS: Amoxicillin/Potassium Clav 875 MG TAB PO SCH (10:31)
[2024-02-23] MEDS: Calcium Citrate 950 MG (200MG) TAB PO SCH (10:32)
[2024-02-24 09:17] VITALS: BP 100/60; TEMP 97.9
== END 2024-02-24 11:16 | disposition home or self-care (01) | DRG 603 ==
LOC: ERS 11:35 → T4-A 15:07 → OBSVTOIN 02-20 08:51
PROVIDERS: ADMIT Internal Medicine; ATTEND Hospitalist
DX: L03.115 Cellulitis of right lower limb (principal); D61.818 Other pancytopenia; N17.9 Acute kidney failure, unspecified; E03.9 Hypothyroidism, unspecified; E11.9 Type 2 diabetes mellitus without complications; Z91.041 Radiographic dye allergy status; D64.9 Anemia, unspecified; Z98.890 Other specified postprocedural states; K74.60 Unspecified cirrhosis of liver; Z79.4 Long term (current) use of insulin; Z79.899 Other long term (current) drug therapy; F17.210 Nicotine dependence, cigarettes, uncomplicated; K75.4 Autoimmune hepatitis; E83.51 Hypocalcemia
CPT/HCPCS: 36415; 36416; 80048; 80053; 80076; 80202; 82330; 83036; 83605; 83970; 85025; 87040; 87070; 87077; 87186; 87205; 96365; 96375; G0378; J0692; J0696; J1815; J3370; J7500

== ENCOUNTER 2024-02-27 14:12 | Outpatient (CLI) | payer BC | END 2024-02-27 14:13 | disposition home or self-care (01) | LOC: BICRAD 14:12 | PROVIDERS: ATTEND Internal Medicine | DX: R09.89 Other specified symptoms and signs involving the circulatory and respiratory systems (principal) | CPT/HCPCS: 71046 ==